=== PATIENT | female | born 1990 | race Caucasian/White ===

== ENCOUNTER 2018-10-24 01:29 | Inpatient (IN) ==
[2018-10-24] MEDS ORDERED: Morphine Inj 4 MG/ML Vial ONE (01:38)
[2018-10-24] MEDS ORDERED: ceFAZolin 2 GM Premix Inj 2 GM/50 ML PIGGYBACK IV.SIG ONE (01:38)
[2018-10-24] MEDS ORDERED: Gentamicin/NS 80 mg Premix 100 ML IV.SIG ONE (01:39)
[2018-10-24] MEDS ORDERED: Diphtheria/Tetanus/Pertussis Vaccine Inj 0.5 ML Syringe IM ONE (01:39)
[2018-10-24 01:58] LABS: Baso # (Auto) 0.1 th/mm3 (0.0-0.2); Baso % (Auto) 0.4 % (0.0-2.0); Eos # (Auto) 0.3 th/mm3 (0.0-0.4); Eos % (Auto) 1.6 % (0.0-4.0); Hematocrit 42.9 % (35.0-46.0); Hemoglobin 14.9 gm/dL (11.6-15.3); Lymph # (Auto) 4.5 th/mm3 (1.0-4.8); Lymph % (Auto) 26.7 % (9.0-44.0); Mean Corpuscular HGB Conc 34.8 % (32.0-36.0); Mean Corpuscular Hemoglobin 31.1 pg (27.0-34.0); Mean Corpuscular Volume 89.3 fL (80.0-100.0); Mean Platelet Volume 8.4 fL (7.0-11.0); Mono # (Auto) 0.7 th/mm3 (0.0-0.9); Mono % (Auto) 4.2 % (0.0-8.0); Neut # (Auto) 11.3 th/mm3 (1.8-7.7); Neut % (Auto) 67.1 % (16.0-70.0); Platelet Count 312 th/mm3 (150-450); Red Blood Count 4.81 mil/mm3 (4.00-5.30); White Blood Count 16.8 th/mm3 (4.0-11.0)
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
[2018-10-24 02:07] LABS: Activated Partial Thrombo Time 25.7 sec (23.4-31.7); Prothrombin Time 10.3 sec (9.8-11.6)
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
[2018-10-24] MEDS ORDERED: HYDROmorphone PF Inj 1 MG/ML Ampul IV.PUSH PRN ×2 (03:36→05:38)
[2018-10-24] MEDS ORDERED: Sod Chloride 0.9% Inj 1,000 ML IV.CONT SCH (03:45)
[2018-10-24] MEDS ORDERED: Pantoprazole Inj 40 MG Vial IV.PUSH SCH (04:00)
[2018-10-24] MEDS ORDERED: Chlorhexidine Gluconate 2% 1 Pack (2 Cloths) TOPICAL PRN (04:00)
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
[2018-10-24] MEDS: Multivitamin Inj 10 ML, Thiamine Inj 100 MG, Folic Acid Inj 1 MG in Sodium Chlor 0.9% I... IV.SIG SCH (07:42)
[2018-10-24] MEDS: Chlorhexidine Gluconate 2% 1 Pack (2 Cloths) TOPICAL SCH (07:49)
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
[2018-10-24] MEDS: Methocarbamol 500 MG Tablet PO SCH ×3 (08:16→21:47)
[2018-10-24] MEDS: Lidocaine 5% Patch T-DERMAL SCH (08:16)
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
[2018-10-24] MEDS ORDERED: Docusate Sodium Liq 100 MG/10 ML UDC PO SCH (09:00)
[2018-10-24] MEDS ORDERED: Docusate Sodium 100 MG Capsule PO SCH (09:00)
[2018-10-24] MEDS ORDERED: Senna/Docusate Sodium 8.6/50 MG Tablet PO SCH (09:00)
[2018-10-24] MEDS ORDERED: Bupivacaine PF 0.25% Inj 30 ML Vial ONE (09:37)
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
[2018-10-24] MEDS ORDERED: Sodium Chlor 0.9% Inj 250 ML IV.CONT ONE (12:11)
[2018-10-24] MEDS ORDERED: Lidocaine PF 1% Inj 5 ML Syringe INFILTRATN ONE (12:11)
[2018-10-24] MEDS ORDERED: Neostigmine Inj 5 MG/5 ML Syringe IV.PUSH ONE (12:11)
[2018-10-24] MEDS ORDERED: Glycopyrrolate Inj 1 MG/5 ML Syringe IV.PUSH ONE (12:11)
[2018-10-24] MEDS ORDERED: Bupivacaine 0.5% Inj 50 ML MDV Vial ONE (13:21)
[2018-10-24] MEDS ORDERED: Naloxone Inj 0.4 MG/ML Vial IV.PUSH PRN (13:35)
[2018-10-24] MEDS ORDERED: Bisacodyl 10 MG Supp RECTAL PRN (13:35)
[2018-10-24] MEDS ORDERED: Misc Info for Pharmacy OTHER STA (13:35)
[2018-10-24] MEDS ORDERED: Promethazine 25 MG Supp RECTAL PRN (13:35)
--- NOTE | 2018-10-24 13:42 | P.BOP ---
- Preoperative Diagnosis (1) Lisfranc fracture (2) Lisfranc dislocation (3) Open fracture of left foot - Postoperative Diagnosis (1) Lisfranc fracture (2) Lisfranc dislocation (3) Open fracture of left foot Date of procedure: 10/24/18 Procedure: 1) Left foot irrigation and drainage. 2) Left foot application of percutaneous k wire 3) Left foot application on mini external fixation. Anesthesia: GETA Surgeon: Yasmine Jenkins DPM Track Supervisor: Jennifer David Estimated blood loss (mL): 20 Tourniquet time (min): 0 ( none) Pathology: none sent Condition: stable Disposition: PACU
[2018-10-24] MEDS ORDERED: fentaNYL Citrate Inj 100 MCG/2 ML Ampul ONE (13:46)
--- NOTE | 2018-10-24 13:50 | XR ---
EXAM DATE: 10/24/2018 1:33 PM EST AGE/SEX: 28 years / Female INDICATIONS: External fixation left foot. CLINICAL DATA: This is the patient's subsequent encounter. Patient reports that signs and symptoms h ave been present for 1 day and indicates a pain score of Nonresponsive. MEDICAL/SURGICAL HISTORY: None. None. COMPARISON: No prior exams available for comparison. FINDINGS: 2 magnified C-arm spot views are centered over the midfoot and labeled left. Anchoring screws for ext ernal fixator are seen involving the distal diaphysis of the first metatarsal as well as the first cu neiform. K style wires traverse the first cuneiform as well as the base of the second metatarsal, sec ond cuneiform, and navicular bone. A third case style wires traverse is the base of the second metata rsal and enters the cuboid. CONCLUSION: Limited images as detailed above. Electronically signed by: Shilo Pimentel MD Board Certified Radiologist 10/24/2018 1:48 PM EST
--- NOTE | 2018-10-24 14:27 | XR ---
EXAM DATE: 10/24/2018 2:17 PM EST AGE/SEX: 28 years / Female INDICATIONS: External fixation left foot. CLINICAL DATA: This is the patient's subsequent encounter. Patient reports that signs and symptoms h ave been present for 1 day and indicates a pain score of Nonresponsive. MEDICAL/SURGICAL HISTORY: None. None. COMPARISON: [facility] [place] 2V, 10/24/2018. [facility] [place] LEFT 2V, 10/24/2018. . FINDINGS: 2 views of the foot demonstrates external fixation screws in the first digit and 3 pins traversing th e first and second digits. The first and second metatarsus are in normal alignment with the cuneiform s. No significant angulation or displacement. Plantar fiberglass splint. CONCLUSION: External fixation hardware with scientology of alignment of the midfoot. Electronically signed by: Shilo Reid MD Board Certified Radiologist 10/24/2018 2:25 PM EST
[2018-10-24 16:03] LABS: Baso % (Auto) 0.2 % (0.0-2.0); Hematocrit 37.9 % (35.0-46.0); Hemoglobin 13.2 gm/dL (11.6-15.3); Lymph # (Auto) 0.9 th/mm3 (1.0-4.8); Lymph % (Auto) 10.6 % (9.0-44.0); Mean Corpuscular HGB Conc 34.7 % (32.0-36.0); Mean Corpuscular Hemoglobin 31.3 pg (27.0-34.0); Mean Platelet Volume 8.6 fL (7.0-11.0); Mono # (Auto) 0.3 th/mm3 (0.0-0.9); Mono % (Auto) 3.5 % (0.0-8.0); Neut # (Auto) 7.5 th/mm3 (1.8-7.7); Neut % (Auto) 85.7 % (16.0-70.0); Platelet Count 235 th/mm3 (150-450); Red Blood Count 4.21 mil/mm3 (4.00-5.30); Red Cell Distribution Width 14.4 % (11.6-17.2); White Blood Count 8.8 th/mm3 (4.0-11.0)
[2018-10-24 16:25] LABS: Calcium 7.7 mg/dL (8.5-10.1); Carbon Dioxide 24.4 meq/L (21.0-32.0); Potassium 4.4 meq/L (3.5-5.1)
[2018-10-24 16:34] LABS: Thyroid Stimulating Hormone 4.55 uIU/mL (0.358-3.740)
[2018-10-24] MEDS: Senna/Docusate Sodium 8.6/50 MG Tablet PO SCH (20:08)
[2018-10-24 20:43] LABS: Baso % (Auto) 0.1 % (0.0-2.0); Hematocrit 37.6 % (35.0-46.0); Hemoglobin 13.1 gm/dL (11.6-15.3); Lymph # (Auto) 1.5 th/mm3 (1.0-4.8); Lymph % (Auto) 13.8 % (9.0-44.0); Mean Corpuscular HGB Conc 34.8 % (32.0-36.0); Mean Corpuscular Volume 89.3 fL (80.0-100.0); Mean Platelet Volume 8.6 fL (7.0-11.0); Mono # (Auto) 0.5 th/mm3 (0.0-0.9); Mono % (Auto) 4.6 % (0.0-8.0); Neut # (Auto) 8.8 th/mm3 (1.8-7.7); Neut % (Auto) 81.5 % (16.0-70.0); Platelet Count 278 th/mm3 (150-450); Red Blood Count 4.22 mil/mm3 (4.00-5.30); Red Cell Distribution Width 14.3 % (11.6-17.2); White Blood Count 10.8 th/mm3 (4.0-11.0)
[2018-10-24 21:04] LABS: Calcium 8.3 mg/dL (8.5-10.1); Carbon Dioxide 21.5 meq/L (21.0-32.0)
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
[2018-10-25] MEDS: Chlorhexidine Gluconate 2% 1 Pack (2 Cloths) TOPICAL SCH (03:55)
[2018-10-25] MEDS: Methocarbamol 500 MG Tablet PO SCH ×3 (05:10→21:34)
[2018-10-25] MEDS: Multivitamin Inj 10 ML, Thiamine Inj 100 MG, Folic Acid Inj 1 MG in Sodium Chlor 0.9% I... IV.SIG SCH (05:10)
[2018-10-25 05:54] LABS: Baso % (Auto) 0.2 % (0.0-2.0); Eos % (Auto) 0.1 % (0.0-4.0); Hematocrit 35.8 % (35.0-46.0); Hemoglobin 12.3 gm/dL (11.6-15.3); Lymph # (Auto) 2.2 th/mm3 (1.0-4.8); Lymph % (Auto) 17.2 % (9.0-44.0); Mean Corpuscular HGB Conc 34.4 % (32.0-36.0); Mean Corpuscular Hemoglobin 31.1 pg (27.0-34.0); Mean Corpuscular Volume 90.2 fL (80.0-100.0); Mono # (Auto) 1.1 th/mm3 (0.0-0.9); Mono % (Auto) 8.8 % (0.0-8.0); Neut # (Auto) 9.2 th/mm3 (1.8-7.7); Neut % (Auto) 73.7 % (16.0-70.0); Platelet Count 239 th/mm3 (150-450); Red Blood Count 3.96 mil/mm3 (4.00-5.30); Red Cell Distribution Width 14.2 % (11.6-17.2); White Blood Count 12.5 th/mm3 (4.0-11.0)
--- NOTE | 2018-10-25 06:14 | XR ---
EXAM DATE: 10/25/2018 3:46 AM EST AGE/SEX: 28 years / Female INDICATIONS: Follow up trauma, rib fractures. CLINICAL DATA: This is the patient's subsequent encounter. Patient reports that signs and symptoms h ave been present for 2 days and indicates a pain score of Nonresponsive. MEDICAL/SURGICAL HISTORY: . Right clavicle fracture. . External fixation left foot COMPARISON: [facility], CHEST 1V SINGLE AP, 10/24/2018. . FINDINGS: Lungs are focally clear. No significant effusion present. Accounting for rotation, cardiac contours a ppear stable and satisfactory. CONCLUSION: No significant change Electronically signed by: Noble Pearce MD Board Certified Radiologist 10/25/2018 6:12 AM EST
[2018-10-25 06:22] LABS: Anion Gap 9 meq/L (5-15); Blood Urea Nitrogen 7 mg/dL (7-18); Calcium 8.7 mg/dL (8.5-10.1); Carbon Dioxide 24.4 meq/L (21.0-32.0); Chloride 104 meq/L (98-107); Glomerular Filtration Rate Greater Than 89 mL/min (>89); Glucose,Random 107 mg/dL (74-106); Potassium 3.7 meq/L (3.5-5.1); Sodium 137 meq/L (136-145)
[2018-10-25] MEDS: Senna/Docusate Sodium 8.6/50 MG Tablet PO SCH ×2 (09:38→21:34)
[2018-10-25] MEDS: Lidocaine 5% Patch T-DERMAL SCH (09:42)
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
[2018-10-25] MEDS: Enoxaparin Inj 30 MG/0.3 ML Syringe SQ SCH ×2 (14:19→21:33)
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
--- NOTE | 2018-10-25 17:08 | ECHRPT ---
Indication: CHEST PAIN CONCLUSIONS Normal left ventricular size. The left ventricular systolic function is normal with an estimated ejection fraction in the range of 55-60%. Wall thickness is normal. [id number] mitral valve regurgitation. There is trace tricuspid valve regurgitation. The estimated pulmonary arterial pressure is 30.6 mmHg. BP: / HR: Rhythm: Sinus MEASUREMENTS (Male / Female) Normal Values Technical Quality:Fair 2D ECHO LV Diastolic Diameter PLAX 5.5 cm 4.2 - 5.9 / 3.9 - 5.3 cm LV Systolic Diameter PLAX 4.2 cm IVS Diastolic Thickness 0.9 cm 0.6 - 1.0 / 0.6 - 0.9 cm LVPW Diastolic Thickness 0.9 cm 0.6 - 1.0 / 0.6 - 0.9 cm LV Relative Wall Thickness 0.3 RV Internal Dim ED PLAX 3.3 cm LVOT Diameter 2.0 cm Aortic Root Diameter 2.7 cm LA Systolic Diameter LX 3.3 cm 3.0 - 4.0 / 2.7 - 3.8 cm M-MODE AV Cusp Separation MM 1.9 cm DOPPLER AV Peak Velocity 149.0 cm/s AV Peak Gradient 8.9 mmHg AV Mean Gradient 5.0 mmHg AV Velocity Time Integral 25.7 cm LVOT Peak Velocity 88.3 cm/s LVOT Peak Gradient 3.1 mmHg LVOT Velocity Time Integral 16.1 cm AV Area Cont Eq vti 2.0 cm AV Area Cont Eq pk 1.9 cm Mitral E Point Velocity 94.8 cm/s Mitral A Point Velocity 87.9 cm/s Mitral E to A Ratio 1.1 LV E' Lateral Velocity 14.4 cm/s Mitral E to LV E' Lateral Ratio 6.6 LV E' Septal Velocity 11.4 cm/s Mitral E to LV E' Septal Ratio 8.3 TR Peak Velocity 227.0 cm/s TR Peak Gradient 20.6 mmHg Right Atrial Pressure 10.0 mmHg Pulmonary Artery Systolic Pressu 30.6 mmHg Right Ventricular Systolic Press 30.6 mmHg PV Peak Velocity 89.5 cm/s PV Peak Gradient 3.2 mmHg FINDINGS LEFT VENTRICLE Normal left ventricular size. The left ventricular systolic function is normal with an estimated ejection fraction in the range of 55-60%. Wall thickness is normal. RIGHT VENTRICLE Normal right ventricular size and systolic function. LEFT ATRIUM The left atrial size is normal. RIGHT ATRIUM The right atrial size is normal. ATRIAL SEPTUM No atrial level shunt is demonstrated by color flow Doppler interrogation. AORTA The aortic root and proximal ascending aorta are normal in size on limited imaging. MITRAL VALVE [id number] mitral valve regurgitation. AORTIC VALVE Trileaflet aortic valve. No aortic valve stenosis or regurgitation. TRICUSPID VALVE There is trace tricuspid valve regurgitation. The estimated pulmonary arterial pressure is 30.6 mmHg. PULMONARY VALVE No pulmonary valve regurgitation or stenosis. VESSELS The inferior vena cava is normal in size. PERICARDIUM No pericardial effusion. Robert Portillo MD, FACC, FSCAI (Electronically Signed) Final Date:25 October 2018 17:07
--- NOTE | 2018-10-26 04:53 | XR ---
EXAM DATE: 10/26/2018 4:22 AM EST AGE/SEX: 28 years / Female INDICATIONS: Shortness of breath. CLINICAL DATA: This is the patient's subsequent encounter. Patient reports that signs and symptoms h ave been present for 2 days and indicates a pain score of 0/10. MEDICAL/SURGICAL HISTORY: Hypothyroidism. Right clavicle fracture. None. COMPARISON: [facility] [place], CHEST 1V SINGLE AP, 10/25/2018. . FINDINGS: A single AP view of the chest demonstrates the lungs to be symmetrically aerated without evidence of mass, infiltrate or effusion. The cardiomediastinal contours are unremarkable. Osseous structures a re intact. CONCLUSION: No acute disease Electronically signed by: Noble Pearce MD Board Certified Radiologist 10/26/2018 4:52 AM EST
[2018-10-26] MEDS: Methocarbamol 500 MG Tablet PO SCH ×3 (05:00→22:26)
[2018-10-26] MEDS: Multivitamin Inj 10 ML, Thiamine Inj 100 MG, Folic Acid Inj 1 MG in Sodium Chlor 0.9% I... IV.SIG SCH (05:00)
[2018-10-26] MEDS: Lidocaine 5% Patch T-DERMAL SCH (10:10)
[2018-10-26] MEDS: Enoxaparin Inj 30 MG/0.3 ML Syringe SQ SCH ×2 (10:12→20:39)
[2018-10-26] MEDS: Senna/Docusate Sodium 8.6/50 MG Tablet PO SCH ×2 (10:13→20:40)
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
--- NOTE | 2018-10-26 22:50 | P.PNPOD ---
Subjective Interval history: POD # 2 Left foot ORIF and ex fix application pain is better controlled. Physical Exam Vital signs: Vital Signs 10/25/18 23:00 10/25/18 23:10 10/26/18 00:00 Temperature 98.2 F Pulse Rate 80 80 80 Respiratory Rate 18 18 18 Blood Pressure 123/73 124/69 Pulse Oximetry 98 97 97 10/26/18 00:10 10/26/18 01:00 10/26/18 01:10 Temperature Pulse Rate 82 87 81 Respiratory Rate 18 18 18 Blood Pressure 124/69 124/80 Pulse Oximetry 97 97 97 10/26/18 02:00 10/26/18 02:10 10/26/18 03:00 Temperature Pulse Rate 79 80 77 Respiratory Rate 18 18 18 Blood Pressure 129/78 Pulse Oximetry 97 97 96 10/26/18 03:10 10/26/18 04:00 10/26/18 04:10 Temperature 98.2 F Pulse Rate 78 78 79 Respiratory Rate 18 18 18 Blood Pressure 136/83 134/90 134/90 Pulse Oximetry 97 96 97 10/26/18 05:00 10/26/18 05:10 10/26/18 05:29 Temperature Pulse Rate 85 81 Respiratory Rate 18 18 16 Blood Pressure 140/84 Pulse Oximetry 96 96 10/26/18 06:00 10/26/18 06:10 10/26/18 07:00 Temperature Pulse Rate 86 86 77 Respiratory Rate 16 16 18 Blood Pressure 139/72 Pulse Oximetry 96 97 96 10/26/18 07:10 10/26/18 08:00 10/26/18 08:10 Temperature 98.6 F Pulse Rate 76 83 Respiratory Rate 20 20 Blood Pressure 126/67 123/73 Pulse Oximetry 96 99 10/26/18 09:00 10/26/18 09:10 10/26/18 10:00 Temperature Pulse Rate 101 H 80 Respiratory Rate 22 20 Blood Pressure 122/78 Pulse Oximetry 98 92 L 10/26/18 10:10 10/26/18 11:00 10/26/18 11:10 Temperature Pulse Rate 82 83 Respiratory Rate 16 26 H Blood Pressure 127/79 124/74 Pulse Oximetry 92 L 92 L 10/26/18 12:00 10/26/18 12:10 10/26/18 13:00 Temperature 98.7 F Pulse Rate 81 88 86 Respiratory Rate 28 H 24 20 Blood Pressure 134/71 Pulse Oximetry 93 L 93 L 93 L 10/26/18 13:10 10/26/18 16:00 Temperature 98.1 F Pulse Rate 86 86 Respiratory Rate 18 16 Blood Pressure 118/67 158/70 H Pulse Oximetry 93 L 95 Intake & Output 10/26/18 10/26/18 10/27/18 06:59 18:59 06:59 Intake Total 651.2 / 651.2 511.2 / 511.2 Output Total 200 / 200 Balance 451.2 / 451.2 511.2 / 511.2 Weight 105.3 kg Intake: IV 511.2 / 511.2 511.2 / 511.2 MVI-12 Inj 10 ML Thiamine Inj 511.2 / 511.2 511.2 / 511.2 100 MG Folvite Inj 1 MG In NS Inj 500 ML @ 125 mls/hr IV.SIG Q24H [facility] Rx#:[id number] Oral 140 / 140 Output: Urine 200 / 200 Other: # Voids 2 Date of Last Bowel Movement 10/26/18 10/26/18 # Bowel Movements 1 Narrative: LLE intact sensation at the digits 1-5 and active ROM available. NVS intact No strikethrough to outer dressing. Medications and Allergies Active Medications: Active Medications Al Hydroxide/Mg Hydroxide (Milk Of Magnjulissa Liq) 30 ml PO Q12H [facility] Last Admin: 10/26/18 20:39 Dose: Not Given Albuterol (Duoneb Neb (Prn)) 1 ampul NEB Q2HR NEB PRN PRN Reason: WHEEZING Bacitracin (Baciguent Oint) 1 applicatio TOPICAL BID [facility] Last Admin: 10/26/18 20:46 Dose: 1 applicatio Bisacodyl (Dulcolax Supp) 10 mg RECTAL DAILY PRN PRN Reason: SEVERE CONSITIPATION Calcium Carbonate (Tums Chew) 500 mg CHEW Q2H PRN PRN Reason: DYSPEPSIA Enalaprilat (Vasotec Inj) 1.25 mg IV.PUSH Q8H PRN PRN Reason: SBP>180, DBP>95 Enoxaparin Sodium (Lovenox Inj) 30 mg SQ Q12HR [facility] Last Admin: 10/26/18 20:39 Dose: Not Given Hydromorphone HCl (Dilaudid Pf Inj) 1 mg IV.PUSH Q4H PRN PRN Reason: Break through pain Last Admin: 10/25/18 14:18 Dose: 1 mg Lactulose (Lactulose Liq) 30 ml PO DAILY PRN PRN Reason: SEVERE CONSITIPATION Levothyroxine Sodium (Synthroid) 25 mcg PO DAILY@0600 [facility] Last Admin: 10/26/18 05:00 Dose: 25 mcg Lidocaine HCl (Lidoderm 5% Patch.12 Hr) 1 patch T-DERMAL DAILY [facility] Last Admin: 10/26/18 10:10 Dose: 1 patch Methocarbamol (Robaxin) 500 mg PO Q8HR [facility] Last Admin: 10/26/18 22:26 Dose: 500 mg Naloxone HCl (Narcan Inj) 0.4 mg IV.PUSH UNSCH PRN PRN Reason: SEE LABEL COMMENTS Ondansetron HCl (Zofran Inj) 4 mg IV.PUSH Q6H PRN PRN Reason: NAUSEA OR VOMITING Ondansetron HCl (Zofran Odt) 4 mg PO Q6H PRN PRN Reason: NAUSEA OR VOMITING Oxycodone HCl (Roxicodone) 10 mg PO Q4H PRN PRN Reason: Pain 6-10 Last Admin: 10/26/18 20:40 Dose: 10 mg Oxycodone HCl (Roxicodone) 5 mg PO Q4H PRN PRN Reason: PAIN SCALE 3 TO 5 Last Admin: 10/26/18 14:07 Dose: 5 mg Promethazine HCl (Phenergan) 25 mg PO Q6H PRN PRN Reason: NAUSEA OR VOMITING Promethazine HCl (Phenergan Supp) 25 mg RECTAL Q6H PRN PRN Reason: NAUSEA OR VOMITING Senna/Docusate Sodium (Jaqueline-Colace) 1 tab PO BID [facility] Last Admin: 10/26/18 20:40 Dose: 1 tab Sennosides (Senokot) 17.2 mg PO Q12H PRN PRN Reason: Moderate Constipation Sodium Chloride (Ns Flush) 2 ml IV.FLUSH BID [facility] Last Admin: 10/26/18 20:39 Dose: 2 ml Sodium Chloride (Ns Flush) 2 ml IV.FLUSH PRN PRN PRN Reason: FLUSH AFTER USING IV ACCESS Allergies Allergy/AdvReac Type Severity Reaction Status Date / Time No Known Drug Allergies Allergy none Verified 10/24/18 06:57 Home Medications Medication Instructions Recorded Confirmed Type No Known Home Medications 10/24/18 10/24/18 History Results - Labs CBC & Chem 7: 10/25/18 05:12 10/25/18 05:12 - Imaging Impressions Chest X-Ray 10/26/18 06:00 CONCLUSION: No acute disease Assessment and Plan - Assessment (1) Lisfranc dislocation Code(s): S93.326A - Dislocation of tarsometatarsal joint of unspecified foot, initial encounter Status: Acute (2) Open fracture of left foot Code(s): S92.902B - Unspecified fracture of left foot, initial encounter for open fracture Status: Acute - Plan Plan for OR on 10/27/18 at 0800 Consent for left foot irrigation and debridement Then plan for primary fusion with Dr Rodriguez in 3-5 days. Patient will be d/c to Rehab at [facility] 6 weeks minimum. (1) Lisfranc dislocation Qualifiers: Encounter type: initial encounter Laterality: left Qualified Code(s): S93.325A - Dislocation of tarsometatarsal joint of left foot, initial encounter (2) Open fracture of left foot Qualifiers: Encounter type: initial encounter Qualified Code(s): S92.902B - Unspecified fracture of left foot, initial encounter for open fracture
[2018-10-27] MEDS ORDERED: Sodium Chlor 0.9% Inj 500 ML IV.CONT ONE (05:45)
[2018-10-27] MEDS ORDERED: Chlorhexidine Gluconate 2% 1 Pack (2 Cloths) TOPICAL ONE (05:45)
[2018-10-27] MEDS: Methocarbamol 500 MG Tablet PO SCH ×3 (06:21→21:30)
--- NOTE | 2018-10-27 06:44 | P.PNOP ---
Subjective Interval history: States the pain is improved to her left upper extremity. Still continues to have pain in the right upper extremity. She is n.p.o. and surgery is planned today for irrigation debridement of her foot. Physical Exam Vital signs: Vital Signs 10/26/18 07:00 10/26/18 07:10 10/26/18 08:00 Temperature 98.6 F Pulse Rate 77 76 83 Respiratory Rate 18 20 20 Blood Pressure 126/67 Pulse Oximetry 96 96 99 10/26/18 08:10 10/26/18 09:00 10/26/18 09:10 Temperature Pulse Rate 101 H Respiratory Rate 22 Blood Pressure 123/73 122/78 Pulse Oximetry 98 10/26/18 10:00 10/26/18 10:10 10/26/18 11:00 Temperature Pulse Rate 80 82 Respiratory Rate 20 16 Blood Pressure 127/79 Pulse Oximetry 92 L 92 L 10/26/18 11:10 10/26/18 12:00 10/26/18 12:10 Temperature 98.7 F Pulse Rate 83 81 88 Respiratory Rate 26 H 28 H 24 Blood Pressure 124/74 134/71 Pulse Oximetry 92 L 93 L 93 L 10/26/18 13:00 10/26/18 13:10 10/26/18 16:00 Temperature 98.1 F Pulse Rate 86 86 86 Respiratory Rate 20 18 16 Blood Pressure 118/67 158/70 H Pulse Oximetry 93 L 93 L 95 10/26/18 20:00 10/27/18 00:00 10/27/18 04:00 Temperature 98.3 F 98.2 F 97.8 F Pulse Rate 90 92 H 74 Respiratory Rate 18 18 18 Blood Pressure 129/70 128/69 130/74 Pulse Oximetry 93 L 93 L 96 Intake & Output 10/26/18 10/26/18 10/27/18 06:59 18:59 06:59 Intake Total 651.2 / 651.2 511.2 / 511.2 200 / 200 Output Total 200 / 200 Balance 451.2 / 451.2 511.2 / 511.2 200 / 200 Weight 105.3 kg 93.7 kg Intake: IV 511.2 / 511.2 511.2 / 511.2 MVI-12 Inj 10 ML Thiamine Inj 511.2 / 511.2 511.2 / 511.2 100 MG Folvite Inj 1 MG In NS Inj 500 ML @ 125 mls/hr IV.SIG Q24H [facility] Rx#:[id number] Oral 140 / 140 200 / 200 Output: Urine 200 / 200 Other: # Voids 2 0 Date of Last Bowel Movement 10/26/18 10/26/18 10/26/18 # Bowel Movements 1 0 Narrative: Right upper extremity: Pain to palpation of her clavicle and sternoclavicular joint. No pain to palpation of elbow wrist or fingers. She has intact sensation and full extension and flexion of all fingers. Good capillary refills and distal pulses Left upper extremity: Minimal pain to palpation over the sternoclavicular joint. She has active motion of the shoulder with minimal pain. Full range of motion of elbow wrist and fingers. Distally intact sensation with good capillary refill Results - Labs CBC & Chem 7: 10/25/18 05:12 10/25/18 05:12 Assessment and Plan - Assessment and Plan Right clavicle fracture and bilateral sternoclavicular joint separations. Nonoperative treatment for bilateral shoulders. She will be nonweightbearing of the right upper extremity and continue to remain in sling and swath. She may be weightbearing as tolerated on the left upper extremity. Continue podiatry care
[2018-10-27] MEDS ORDERED: Lidocaine 2% Inj 50 ML Vial ONE (07:21)
[2018-10-27] MEDS ORDERED: Neomycin/Polymyxin G.U. Irrigant 1 ML Ampul ONE (07:35)
[2018-10-27] MEDS ORDERED: Lidocaine PF 1% Inj 5 ML Syringe INFILTRATN ONE (07:59)
[2018-10-27] MEDS: [UNRECOGNIZED DRUG - OTHER] IRRIGATION SCH ×4 (08:32→09:49)
[2018-10-27] MEDS: NEOMYCIN IRRIGATION SCH ×4 (08:32→09:49)
[2018-10-27] MEDS: SOD CHLORIDE 0.9% IRRIGATION SCH ×4 (08:32→09:49)
[2018-10-27] MEDS: Bupivacaine 0.5% Inj 50 ML MDV Vial ONE ×2 (08:34→08:45)
[2018-10-27] MEDS ORDERED: fentaNYL Citrate Inj 100 MCG/2 ML Ampul ONE (09:10)
[2018-10-27] MEDS ORDERED: Bisacodyl 10 MG Supp RECTAL PRN (09:11)
[2018-10-27] MEDS ORDERED: Naloxone Inj 0.4 MG/ML Vial IV.PUSH PRN (09:11)
[2018-10-27] MEDS ORDERED: Promethazine 25 MG Supp RECTAL PRN (09:11)
[2018-10-27] MEDS ORDERED: Misc Info for Pharmacy OTHER STA (09:11)
--- NOTE | 2018-10-27 09:18 | P.BOP ---
- Preoperative Diagnosis (1) Lisfranc dislocation (2) Open fracture of left foot - Postoperative Diagnosis (1) Lisfranc dislocation (2) Open fracture of left foot Date of procedure: 10/27/18 Procedure: 1) left foot irrigation and debridement. Anesthesia: GETA Surgeon: Yasmine Jenkins DPM Estimated blood loss (mL): 3 Tourniquet time (min): 0 (Left tourniquent ankle never inflated.) Pathology: none sent (Culture left dorsal midfoot) Condition: stable Disposition: PACU
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
[2018-10-27] MEDS: Senna/Docusate Sodium 8.6/50 MG Tablet PO SCH ×2 (09:48→20:26)
[2018-10-27] MEDS: Enoxaparin Inj 30 MG/0.3 ML Syringe SQ SCH ×2 (09:48→20:29)
[2018-10-27] MEDS: Lidocaine 5% Patch T-DERMAL SCH (12:32)
[2018-10-27] MEDS ORDERED: Senna/Docusate Sodium 8.6/50 MG Tablet PO SCH (21:00)
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
[2018-10-28 05:18] LABS: Baso % (Auto) 0.5 % (0.0-2.0); Eos # (Auto) 0.2 th/mm3 (0.0-0.4); Eos % (Auto) 2.6 % (0.0-4.0); Hematocrit 34.1 % (35.0-46.0); Hemoglobin 11.6 gm/dL (11.6-15.3); Lymph # (Auto) 3.2 th/mm3 (1.0-4.8); Lymph % (Auto) 42.2 % (9.0-44.0); Mean Corpuscular HGB Conc 33.9 % (32.0-36.0); Mean Corpuscular Hemoglobin 30.3 pg (27.0-34.0); Mean Corpuscular Volume 89.2 fL (80.0-100.0); Mean Platelet Volume 8.5 fL (7.0-11.0); Mono # (Auto) 0.6 th/mm3 (0.0-0.9); Mono % (Auto) 8.2 % (0.0-8.0); Neut # (Auto) 3.6 th/mm3 (1.8-7.7); Neut % (Auto) 46.5 % (16.0-70.0); Platelet Count 237 th/mm3 (150-450); Red Blood Count 3.83 mil/mm3 (4.00-5.30); Red Cell Distribution Width 14.1 % (11.6-17.2); White Blood Count 7.6 th/mm3 (4.0-11.0)
[2018-10-28] MEDS: Methocarbamol 500 MG Tablet PO SCH ×3 (05:20→21:16)
[2018-10-28 05:43] LABS: Anion Gap 7 meq/L (5-15); Blood Urea Nitrogen 8 mg/dL (7-18); Calcium 8.4 mg/dL (8.5-10.1); Carbon Dioxide 28.3 meq/L (21.0-32.0); Chloride 105 meq/L (98-107); Glomerular Filtration Rate Greater Than 89 mL/min (>89); Glucose,Random 86 mg/dL (74-106); Potassium 3.7 meq/L (3.5-5.1); Sodium 140 meq/L (136-145)
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
[2018-10-28] MEDS: Senna/Docusate Sodium 8.6/50 MG Tablet PO SCH ×2 (09:15→21:16)
[2018-10-28] MEDS: Lidocaine 5% Patch T-DERMAL SCH (09:15)
[2018-10-28] MEDS: Enoxaparin Inj 30 MG/0.3 ML Syringe SQ SCH ×2 (09:16→21:16)
[2018-10-28] MEDS: NEOMYCIN IRRIGATION SCH ×2 (09:21)
[2018-10-28] MEDS: SOD CHLORIDE 0.9% IRRIGATION SCH ×2 (09:21)
[2018-10-28] MEDS: [UNRECOGNIZED DRUG - OTHER] IRRIGATION SCH ×2 (09:21)
--- NOTE | 2018-10-28 23:34 | P.PNPOD ---
Subjective Interval history: Patient seen bedside. Pain well controlled to right LE. Physical Exam Vital signs: Vital Signs 10/27/18 23:35 10/28/18 04:25 10/28/18 08:00 Temperature 97.9 F 97.8 F 97.9 F Pulse Rate 79 83 83 Respiratory Rate 17 17 20 Blood Pressure 110/61 118/59 L 115/67 Pulse Oximetry 94 L 95 94 L 10/28/18 12:00 10/28/18 16:00 10/28/18 21:00 Temperature 97.7 F 97.8 F 97.9 F Pulse Rate 81 82 76 Respiratory Rate 20 20 18 Blood Pressure 124/66 115/73 124/69 Pulse Oximetry 94 L 98 94 L 10/28/18 21:15 Temperature Pulse Rate Respiratory Rate 18 Blood Pressure Pulse Oximetry Intake & Output 10/28/18 10/28/18 10/29/18 06:59 18:59 06:59 Intake Total 480 / 480 Balance 480 / 480 Weight 93.7 kg Intake: Oral 480 / 480 Other: # Voids 1 4 Date of Last Bowel Movement 10/26/18 # Bowel Movements 0 Narrative: Dressing intact to left LE. COMPUTER SYSTEM[employer]UDIT[employer] Under 3 secs to digits x5 left LE. Active/ Passive DF/PF digits x5. Medications and Allergies Active Medications: Active Medications Al Hydroxide/Mg Hydroxide (Milk Of Katey Flannery) 30 ml PO Q12H [facility] Last Admin: 10/28/18 21:16 Dose: 30 ml Albuterol (Duoneb Neb (Prn)) 1 ampul NEB Q2HR NEB PRN PRN Reason: WHEEZING Bacitracin (Baciguent Oint) 1 applicatio TOPICAL BID [facility] Last Admin: 10/28/18 09:21 Dose: Not Given Bisacodyl (Dulcolax Supp) 10 mg RECTAL DAILY PRN PRN Reason: SEVERE CONSITIPATION Calcium Carbonate (Tums Chew) 500 mg CHEW Q2H PRN PRN Reason: DYSPEPSIA Sodium Chloride 3,000 ml/ (Neomycin/Polymyxin 2 ml) 0 ml IRRIGATION DAILY [facility] Last Admin: 10/28/18 09:21 Dose: Not Given Enalaprilat (Vasotec Inj) 1.25 mg IV.PUSH Q8H PRN PRN Reason: SBP>180, DBP>95 Enoxaparin Sodium (Lovenox Inj) 30 mg SQ Q12HR [facility] Last Admin: 10/28/18 21:16 Dose: 30 mg Hydromorphone HCl (Dilaudid Pf Inj) 0.5 mg IV.PUSH Q4H PRN PRN Reason: Break through pain Lactulose (Lactulose Liq) 30 ml PO DAILY [facility] Last Admin: 10/28/18 09:17 Dose: Not Given Levothyroxine Sodium (Synthroid) 25 mcg PO DAILY@0600 [facility] Last Admin: 10/28/18 05:20 Dose: 25 mcg Lidocaine HCl (Lidoderm 5% Patch.12 Hr) 1 patch T-DERMAL DAILY [facility] Last Admin: 10/28/18 09:15 Dose: 1 patch Methocarbamol (Robaxin) 500 mg PO Q8HR [facility] Last Admin: 10/28/18 21:16 Dose: 500 mg Naloxone HCl (Narcan Inj) 0.4 mg IV.PUSH UNSCH PRN PRN Reason: SEE LABEL COMMENTS Ondansetron HCl (Zofran Inj) 4 mg IV.PUSH Q6H PRN PRN Reason: NAUSEA OR VOMITING Ondansetron HCl (Zofran Odt) 4 mg PO Q6H PRN PRN Reason: NAUSEA OR VOMITING Oxycodone HCl (Roxicodone) 10 mg PO Q4H PRN PRN Reason: Pain 6-10 Last Admin: 10/28/18 19:28 Dose: 10 mg Oxycodone HCl (Roxicodone) 5 mg PO Q4H PRN PRN Reason: PAIN SCALE 3 TO 5 Last Admin: 10/26/18 14:07 Dose: 5 mg Promethazine HCl (Phenergan) 25 mg PO Q6H PRN PRN Reason: NAUSEA OR VOMITING Promethazine HCl (Phenergan Supp) 25 mg RECTAL Q6H PRN PRN Reason: NAUSEA OR VOMITING Senna/Docusate Sodium (Jaqueline-Colace) 1 tab PO BID [facility] Last Admin: 10/28/18 21:16 Dose: 1 tab Sennosides (Senokot) 17.2 mg PO Q12H PRN PRN Reason: Moderate Constipation Sodium Chloride (Ns Flush) 2 ml IV.FLUSH BID [facility] Last Admin: 10/28/18 21:16 Dose: 2 ml Sodium Chloride (Ns Flush) 2 ml IV.FLUSH PRN PRN PRN Reason: FLUSH AFTER USING IV ACCESS Allergies Allergy/AdvReac Type Severity Reaction Status Date / Time No Known Drug Allergies Allergy none Verified 10/24/18 06:57 Home Medications Medication Instructions Recorded Confirmed Type No Known Home Medications 10/24/18 10/24/18 History Results - Labs CBC & Chem 7: 10/28/18 04:41 10/28/18 04:41 Laboratory Results - last 24 hr 10/28/18 10/28/18 04:41 04:41 WBC 7.6 RBC 3.83 L Hgb 11.6 Hct 34.1 L MCV 89.2 MCH 30.3 MCHC 33.9 RDW 14.1 Plt Count 237 MPV 8.5 Neut % (Auto) 46.5 Lymph % (Auto) 42.2 [place] % (Auto) 8.2 H Eos % (Auto) 2.6 Baso % (Auto) 0.5 Neut # (Auto) 3.6 Lymph # (Auto) 3.2 [place] # (Auto) 0.6 Eos # (Auto) 0.2 Baso # (Auto) 0.0 WBC Differential . Differential Comment Auto diff final Sodium 140 Potassium 3.7 Chloride 105 Carbon Dioxide 28.3 Anion Gap 7 BUN 8 Creatinine 0.58 Estimated GFR Greater than 89 Random Glucose 86 Calcium 8.4 L Microbiology 10/27/18 08:26 Wound - Foot Acid Fast Bacilli Smear - Final No acid fast bacilli seen 10/27/18 08:26 Wound - Foot Gram Stain - Final 10/27/18 08:26 Wound - Foot Wound Culture - Preliminary No growth in 24 hours 10/27/18 08:26 Wound - Foot Fungal Smear - Final No fungal elements seen Assessment and Plan - Assessment (1) Lisfranc dislocation Code(s): S93.326A - Dislocation of tarsometatarsal joint of unspecified foot, initial encounter Status: Acute (2) Open fracture of left foot Code(s): S92.902B - Unspecified fracture of left foot, initial encounter for open fracture Status: Acute - Plan 28 year old s/p multiple D&I with ex fix placement to the LLE 2/2 open lisfranc dislocation To OR tomorrow for left LE ORIF and repeat debridement and irrigation Consent to be obtained and to read: Left foot first metatarsal and Lisfranc open reduction internal fixation; Left foot open fracture debridement and irrigation NPO after midnight Patient understands all risks, alternatives, complications, and benefits (1) Lisfranc dislocation Qualifiers: Encounter type: initial encounter Laterality: left Qualified Code(s): S93.325A - Dislocation of tarsometatarsal joint of left foot, initial encounter (2) Open fracture of left foot Qualifiers: Encounter type: initial encounter Qualified Code(s): S92.902B - Unspecified fracture of left foot, initial encounter for open fracture
[2018-10-29] MEDS: Methocarbamol 500 MG Tablet PO SCH ×3 (06:16→21:21)
[2018-10-29] MEDS ORDERED: Metoprolol Tartrate 25 MG Tablet PO ONE (08:16)
[2018-10-29] MEDS ORDERED: Chlorhexidine Gluconate 2% 1 Pack (2 Cloths) TOPICAL ONE (08:16)
[2018-10-29] MEDS ORDERED: Sodium Chlor 0.9% Inj 500 ML IV.SIG SCH (09:00)
[2018-10-29] MEDS: Lidocaine 5% Patch T-DERMAL SCH (10:18)
[2018-10-29] MEDS: Enoxaparin Inj 30 MG/0.3 ML Syringe SQ SCH ×2 (10:19→21:25)
[2018-10-29] MEDS: [UNRECOGNIZED DRUG - OTHER] IRRIGATION SCH ×2 (10:25)
[2018-10-29] MEDS: SOD CHLORIDE 0.9% IRRIGATION SCH ×2 (10:25)
[2018-10-29] MEDS: NEOMYCIN IRRIGATION SCH ×2 (10:25)
[2018-10-29] MEDS: Senna/Docusate Sodium 8.6/50 MG Tablet PO SCH ×2 (10:25→21:21)
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
--- NOTE | 2018-10-29 13:52 | P.PNPOD ---
Subjective Interval history: Patient seen bedside. Patient is awaiting surgical intervention. She states she has been n.p.o. No concerns at this time Physical Exam Vital signs: Vital Signs 10/28/18 16:00 10/28/18 21:00 10/28/18 21:15 Temperature 97.8 F 97.9 F Pulse Rate 82 76 Respiratory Rate 20 18 18 Blood Pressure 115/73 124/69 Pulse Oximetry 98 94 L 10/29/18 00:14 10/29/18 08:00 10/29/18 12:00 Temperature 97.9 F 97.9 F 97.5 F L Pulse Rate 70 77 88 Respiratory Rate 18 22 22 Blood Pressure 119/72 117/69 132/80 Pulse Oximetry 94 L 94 L 96 Intake & Output 10/28/18 10/29/18 10/29/18 18:59 06:59 18:59 Intake Total 1440 / 1440 Balance 1440 / 1440 Weight 90.3 kg Intake: Oral 1440 / 1440 Other: # Voids 4 2 Date of Last Bowel Movement 10/28/18 10/26/18 # Bowel Movements 0 Narrative: Left lower extremity dressing clean dry and intact. No interval changes since yesterday's physical exam. Medications and Allergies Active Medications: Active Medications Al Hydroxide/Mg Hydroxide (Milk Of Katey Flannery) 30 ml PO Q12H [facility] Last Admin: 10/29/18 10:19 Dose: Not Given Albuterol (Duoneb Neb (Prn)) 1 ampul NEB Q2HR NEB PRN PRN Reason: WHEEZING Bacitracin (Baciguent Oint) 1 applicatio TOPICAL BID [facility] Last Admin: 10/29/18 10:18 Dose: Not Given Bisacodyl (Dulcolax Supp) 10 mg RECTAL DAILY PRN PRN Reason: SEVERE CONSITIPATION Calcium Carbonate (Tums Chew) 500 mg CHEW Q2H PRN PRN Reason: DYSPEPSIA Sodium Chloride 3,000 ml/ (Neomycin/Polymyxin 2 ml) 0 ml IRRIGATION DAILY [facility] Last Admin: 10/29/18 10:25 Dose: Not Given Enalaprilat (Vasotec Inj) 1.25 mg IV.PUSH Q8H PRN PRN Reason: SBP>180, DBP>95 Enoxaparin Sodium (Lovenox Inj) 30 mg SQ Q12HR [facility] Last Admin: 10/29/18 10:19 Dose: Not Given Hydromorphone HCl (Dilaudid Pf Inj) 0.5 mg IV.PUSH Q4H PRN PRN Reason: Break through pain Lactated Ringer's (Lr 1000 Ml Inj) 1,000 mls @ 30 mls/hr IV.SIG .Q24H [facility] Stop: 10/30/18 08:29 Sodium Chloride (Ns Inj) 500 mls @ 30 mls/hr IV.SIG .Q10H [facility] Lactulose (Lactulose Liq) 30 ml PO DAILY [facility] Last Admin: 10/29/18 10:18 Dose: Not Given Levothyroxine Sodium (Synthroid) 25 mcg PO DAILY@0600 [facility] Last Admin: 10/29/18 06:16 Dose: 25 mcg Lidocaine HCl (Lidoderm 5% Patch.12 Hr) 1 patch T-DERMAL DAILY [facility] Last Admin: 10/29/18 10:18 Dose: 1 patch Methocarbamol (Robaxin) 500 mg PO Q8HR [facility] Last Admin: 10/29/18 06:16 Dose: 500 mg Naloxone HCl (Narcan Inj) 0.4 mg IV.PUSH UNSCH PRN PRN Reason: SEE LABEL COMMENTS Ondansetron HCl (Zofran Inj) 4 mg IV.PUSH Q6H PRN PRN Reason: NAUSEA OR VOMITING Ondansetron HCl (Zofran Odt) 4 mg PO Q6H PRN PRN Reason: NAUSEA OR VOMITING Oxycodone HCl (Roxicodone) 10 mg PO Q4H PRN PRN Reason: Pain 6-10 Last Admin: 10/29/18 06:18 Dose: 10 mg Oxycodone HCl (Roxicodone) 5 mg PO Q4H PRN PRN Reason: PAIN SCALE 3 TO 5 Last Admin: 10/29/18 10:27 Dose: 5 mg Promethazine HCl (Phenergan) 25 mg PO Q6H PRN PRN Reason: NAUSEA OR VOMITING Promethazine HCl (Phenergan Supp) 25 mg RECTAL Q6H PRN PRN Reason: NAUSEA OR VOMITING Senna/Docusate Sodium (Jaqueline-Colace) 1 tab PO BID [facility] Last Admin: 10/29/18 10:25 Dose: Not Given Sennosides (Senokot) 17.2 mg PO Q12H PRN PRN Reason: Moderate Constipation Sodium Chloride (Ns Flush) 2 ml IV.FLUSH BID [facility] Last Admin: 10/29/18 10:24 Dose: 2 ml Sodium Chloride (Ns Flush) 2 ml IV.FLUSH PRN PRN PRN Reason: FLUSH AFTER USING IV ACCESS Allergies Allergy/AdvReac Type Severity Reaction Status Date / Time No Known Drug Allergies Allergy none Verified 10/24/18 06:57 Home Medications Medication Instructions Recorded Confirmed Type No Known Home Medications 10/24/18 10/24/18 History Results - Labs CBC & Chem 7: 10/28/18 04:41 10/28/18 04:41 Microbiology 10/27/18 08:26 Wound - Foot Gram Stain - Final 10/27/18 08:26 Wound - Foot Wound Culture - Preliminary No growth in 48 hours 10/27/18 08:26 Wound - Foot Acid Fast Bacilli Smear - Final No acid fast bacilli seen 10/27/18 08:26 Wound - Foot Fungal Smear - Final No fungal elements seen Assessment and Plan - Assessment (1) Lisfranc dislocation Code(s): S93.326A - Dislocation of tarsometatarsal joint of unspecified foot, initial encounter Status: Acute (2) Open fracture of left foot Code(s): S92.902B - Unspecified fracture of left foot, initial encounter for open fracture Status: Acute - Plan 28 year old s/p multiple D&I with ex fix placement to the LLE 2/2 open lisfranc dislocation To OR today for left LE ORIF and repeat debridement and irrigation Consent to be obtained and to read: Left foot first metatarsal and Lisfranc open reduction internal fixation; Left foot open fracture debridement and irrigation Consent signed Remain NPO Patient understands all risks, alternatives, complications, and benefits (1) Lisfranc dislocation Qualifiers: Encounter type: initial encounter Laterality: left Qualified Code(s): S93.325A - Dislocation of tarsometatarsal joint of left foot, initial encounter (2) Open fracture of left foot Qualifiers: Encounter type: initial encounter Qualified Code(s): S92.902B - Unspecified fracture of left foot, initial encounter for open fracture
[2018-10-30 05:12] LABS: Baso # (Auto) 0.1 th/mm3 (0.0-0.2); Baso % (Auto) 0.7 % (0.0-2.0); Eos # (Auto) 0.3 th/mm3 (0.0-0.4); Eos % (Auto) 3.5 % (0.0-4.0); Hematocrit 35.3 % (35.0-46.0); Hemoglobin 12.2 gm/dL (11.6-15.3); Lymph # (Auto) 3.1 th/mm3 (1.0-4.8); Lymph % (Auto) 36.1 % (9.0-44.0); Mean Corpuscular HGB Conc 34.5 % (32.0-36.0); Mean Corpuscular Hemoglobin 30.8 pg (27.0-34.0); Mean Corpuscular Volume 89.2 fL (80.0-100.0); Mean Platelet Volume 8.2 fL (7.0-11.0); Mono # (Auto) 0.8 th/mm3 (0.0-0.9); Mono % (Auto) 9.6 % (0.0-8.0); Neut # (Auto) 4.3 th/mm3 (1.8-7.7); Neut % (Auto) 50.1 % (16.0-70.0); Platelet Count 268 th/mm3 (150-450); Red Blood Count 3.95 mil/mm3 (4.00-5.30); Red Cell Distribution Width 14.1 % (11.6-17.2); White Blood Count 8.6 th/mm3 (4.0-11.0)
[2018-10-30 05:37] LABS: Anion Gap 8 meq/L (5-15); Blood Urea Nitrogen 10 mg/dL (7-18); Calcium 8.6 mg/dL (8.5-10.1); Carbon Dioxide 28.5 meq/L (21.0-32.0); Chloride 104 meq/L (98-107); Glomerular Filtration Rate Greater Than 89 mL/min (>89); Glucose,Random 98 mg/dL (74-106); Potassium 3.7 meq/L (3.5-5.1); Sodium 140 meq/L (136-145)
[2018-10-30] MEDS: Methocarbamol 500 MG Tablet PO SCH ×3 (06:11→21:01)
--- NOTE | 2018-10-30 06:47 | P.PNOP ---
Subjective Interval history: Resting comfortably. Is scheduled for surgery today for her foot by podiatry. She continues to wear sling on the right upper extremity Physical Exam Vital signs: Vital Signs 10/29/18 08:00 10/29/18 12:00 10/29/18 16:00 Temperature 97.9 F 97.5 F L 97.9 F Pulse Rate 77 88 86 Respiratory Rate 22 22 22 Blood Pressure 117/69 132/80 132/89 Pulse Oximetry 94 L 96 98 10/29/18 20:30 10/30/18 00:20 Temperature 98.7 F 98.2 F Pulse Rate 89 82 Respiratory Rate 17 17 Blood Pressure 122/75 126/59 L Pulse Oximetry 96 97 Intake & Output 10/29/18 10/29/18 10/30/18 06:59 18:59 06:59 Intake Total 1440 / 1440 Balance 1440 / 1440 Weight 90.3 kg 90.3 kg Intake: Oral 1440 / 1440 Other: # Voids 2 4 Date of Last Bowel Movement 10/28/18 10/26/18 10/28/18 # Bowel Movements 0 Narrative: Right upper extremity: Pain to palpation over clavicle. Sling in place. Tenderness over the sternoclavicular joint. Intact sensation distally. Full extension flexion of all fingers Results - Labs CBC & Chem 7: 10/30/18 04:36 10/30/18 04:36 Laboratory Results - last 24 hr 10/30/18 10/30/18 04:36 04:36 WBC 8.6 RBC 3.95 L Hgb 12.2 Hct 35.3 MCV 89.2 MCH 30.8 MCHC 34.5 RDW 14.1 Plt Count 268 MPV 8.2 Neut % (Auto) 50.1 Lymph % (Auto) 36.1 [place] % (Auto) 9.6 H Eos % (Auto) 3.5 Baso % (Auto) 0.7 Neut # (Auto) 4.3 Lymph # (Auto) 3.1 [place] # (Auto) 0.8 Eos # (Auto) 0.3 Baso # (Auto) 0.1 WBC Differential . Differential Comment Auto diff final Sodium 140 Potassium 3.7 Chloride 104 Carbon Dioxide 28.5 Anion Gap 8 BUN 10 Creatinine 0.67 Estimated GFR Greater than 89 Random Glucose 98 Calcium 8.6 TSH 19.800 H Microbiology 10/27/18 08:26 Wound - Foot Gram Stain - Final 10/27/18 08:26 Wound - Foot Wound Culture - Preliminary No growth in 48 hours Assessment and Plan - Assessment and Plan Right clavicle fracture and bilateral sternoclavicular joint separations. Nonoperative treatment for bilateral shoulders. She will be nonweightbearing of the right upper extremity and continue to remain in sling and swath. She may be weightbearing as tolerated on the left upper extremity. Continue podiatry care
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
[2018-10-30] MEDS: Lidocaine 5% Patch T-DERMAL SCH (09:47)
[2018-10-30] MEDS: Enoxaparin Inj 30 MG/0.3 ML Syringe SQ SCH ×2 (09:48→20:58)
[2018-10-30] MEDS: Senna/Docusate Sodium 8.6/50 MG Tablet PO SCH ×2 (09:48→20:56)
[2018-10-30] MEDS: SOD CHLORIDE 0.9% IRRIGATION SCH ×2 (09:50)
[2018-10-30] MEDS: NEOMYCIN IRRIGATION SCH ×2 (09:50)
[2018-10-30] MEDS: [UNRECOGNIZED DRUG - OTHER] IRRIGATION SCH ×2 (09:50)
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
[2018-10-31] MEDS ORDERED: Chlorhexidine Gluconate 2% 1 Pack (2 Cloths) TOPICAL ONE (02:52)
[2018-10-31] MEDS ORDERED: Sodium Chlor 0.9% Inj 500 ML IV.SIG SCH (03:00)
[2018-10-31] MEDS: Methocarbamol 500 MG Tablet PO SCH ×2 (05:50→13:33)
[2018-10-31] MEDS: Lidocaine 5% Patch T-DERMAL SCH (09:34)
[2018-10-31] MEDS: Senna/Docusate Sodium 8.6/50 MG Tablet PO SCH (09:37)
[2018-10-31] MEDS: Enoxaparin Inj 30 MG/0.3 ML Syringe SQ SCH (09:37)
[2018-10-31] MEDS: [UNRECOGNIZED DRUG - OTHER] IRRIGATION SCH ×2 (09:38)
[2018-10-31] MEDS: NEOMYCIN IRRIGATION SCH ×2 (09:38)
[2018-10-31] MEDS: SOD CHLORIDE 0.9% IRRIGATION SCH ×2 (09:38)
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
[2018-10-31] MEDS ORDERED: Lidocaine PF 1% Inj 5 ML Syringe OTHER ONE (19:01)
[2018-10-31] MEDS ORDERED: ceFAZolin Inj 2 GM in Sodium Chlor 0.9% Inj 100 ML IV.SIG ONE (19:56)
--- NOTE | 2018-10-31 21:10 | P.BOP ---
- Preoperative Diagnosis (1) Displaced fracture of first metatarsal bone, left foot, initial encounter for open fracture (2) Lisfranc fracture (3) Lisfranc dislocation (4) Open fracture of left foot - Postoperative Diagnosis (1) Lisfranc fracture (2) Lisfranc dislocation (3) Open fracture of left foot (4) Displaced fracture of first metatarsal bone, left foot, initial encounter for open fracture Date of procedure: 10/31/18 Procedure: 1. Open reduction with pinning of 1st metatarsal fracture left foot 2. Irrigation and debridement of open fracture left foot Patient noted to have large area of soft tissue necrosis to dorsal foot at area of fracture and permanent internal fixation deemed not appropriate at this time. Necrotic tissue excisionally debrided with #15 blade and rongeur down to bleeding subcutaneous tissue and tendon to dorsal left foot. Residual wound left is approximately 7cm x 4cm x 0.8cm depth, down to level of tendon and bone. Fixator removed and 1st TMT joint very unstable. Fracture pinned with 0.62 k- wire to 1st metatarsal base, as well as 0.62 kwire from 1st metatarsal to medial cuneiform due to severe instability. Left the two pins in 2nd metatarsal to midfoot area. Irrigation with normal saline, followed by approximation of tissue with 2-0 nylon and applied xeroform to wound bed and small granufoam wound vac to the wound. Setting at 125mmHg medium continuous. Short posterior splint reapplied. 2g ancef IV preop No tourniquet utilized. Nonweightbearing left lower extremity. DISPOSITION: VERY IMPORTANT Will need definitive fusion of lisfranc joint when soft tissue defect has healed. Will likely need a graft to the wound area. This is a VERY unstable foot and complex wound and wound vac area with hardware within the wound bed. She will need wound vac changes under anesthesia.. If patient is going to go upstairs to [place], will follow there and change wound vac under anesthesia with possibly apply some kind of graft application prior to discharge. I understand she lives in [place], but may have serious issues with wound and infection if not able to get patient ready for travel and follow up arranged PRIOR to her discharge. Implants: k-wires Anesthesia: GETA, local (10mL 0.25% marcaine plain) Surgeon: Jennifer David DPM Product Safety Tester: staff Estimated blood loss (mL): 10 Pathology: none sent Condition: stable Disposition: PACU
[2018-10-31] MEDS ORDERED: *morphine SULFATE 4 MG/ML PERIprocedure ONLY ONE ×2 (21:58→22:25)
[2018-11-01] MEDS: Enoxaparin Inj 30 MG/0.3 ML Syringe SQ SCH ×3 (00:06→22:20)
[2018-11-01] MEDS: Methocarbamol 500 MG Tablet PO SCH ×4 (00:10→22:20)
[2018-11-01] MEDS ORDERED: Bisacodyl 10 MG Supp RECTAL ONE (07:22)
[2018-11-01] MEDS: Senna/Docusate Sodium 8.6/50 MG Tablet PO SCH ×3 (08:43→22:20)
[2018-11-01] MEDS: Lidocaine 5% Patch T-DERMAL SCH (08:43)
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
[2018-11-01 11:39] LABS: Hematocrit 34.7 % (35.0-46.0); Hemoglobin 11.8 gm/dL (11.6-15.3)
[2018-11-01] MEDS: [UNRECOGNIZED DRUG - OTHER] IRRIGATION SCH ×2 (11:40)
[2018-11-01] MEDS: SOD CHLORIDE 0.9% IRRIGATION SCH ×2 (11:40)
[2018-11-01] MEDS: NEOMYCIN IRRIGATION SCH ×2 (11:40)
--- NOTE | 2018-11-01 19:20 | P.PNPOD ---
Physical Exam Vital signs: Vital Signs 10/31/18 20:53 10/31/18 21:00 10/31/18 21:15 Temperature 98.3 F Pulse Rate 94 H 85 82 Respiratory Rate 14 14 16 Blood Pressure 134/84 133/77 141/79 H Pulse Oximetry 99 98 99 10/31/18 21:30 10/31/18 21:45 10/31/18 22:00 Temperature Pulse Rate 77 82 79 Respiratory Rate 14 19 23 Blood Pressure 137/76 136/73 135/78 Pulse Oximetry 100 99 100 10/31/18 22:15 10/31/18 22:30 11/01/18 00:01 Temperature 98.2 F 98.1 F Pulse Rate 76 81 77 Respiratory Rate 16 17 18 Blood Pressure 130/74 120/72 114/76 Pulse Oximetry 99 98 94 L 11/01/18 03:24 11/01/18 08:00 11/01/18 09:13 Temperature 98.0 F 97.8 F Pulse Rate 94 H 90 Respiratory Rate 18 20 18 Blood Pressure 112/65 137/83 Pulse Oximetry 96 97 11/01/18 12:01 11/01/18 13:18 11/01/18 16:00 Temperature 97.9 F 98.1 F Pulse Rate 80 72 Respiratory Rate 16 18 16 Blood Pressure 115/66 100/55 L Pulse Oximetry 96 11/01/18 16:56 Temperature Pulse Rate Respiratory Rate 18 Blood Pressure Pulse Oximetry Intake & Output 11/01/18 11/01/18 11/02/18 06:59 18:59 06:59 Intake Total 1150 / 1150 1720 / 1720 Output Total 10 10 Balance 1140 / 1140 1720 / 1720 Weight 87.1 kg Intake: IV 50 / 50 1000 / 1000 Ancef Inj 2 GM In NS Inj 100 ML 50 / 50 @ 100 mls/hr IV.SIG ONCE ONE Rx#:[id number] Oral 720 / 720 Anesthesia Amount 1100 / 1100 Output: Estimated Blood Loss 10 / 10 Other: Mode Setting Left Foot Continuous Continuous # Voids 3 2 Date of Last Bowel Movement 10/31/18 Narrative: wound vac intact left foot, splint intact left lower extremity. Neurovascularly intact left lower extremity Medications and Allergies Active Medications: Active Medications Al Hydroxide/Mg Hydroxide (Milk Of Magnesia Liq) 30 ml PO Q12H LUCIO Last Admin: 11/01/18 08:49 Dose: Not Given Albuterol (Duoneb Neb (Prn)) 1 ampul NEB Q2HR NEB PRN PRN Reason: WHEEZING Bacitracin (Baciguent Oint) 1 applicatio TOPICAL BID [facility] Last Admin: 11/01/18 08:49 Dose: 1 applicatio Bisacodyl (Dulcolax Supp) 10 mg RECTAL DAILY PRN PRN Reason: SEVERE CONSITIPATION Calcium Carbonate (Tums Chew) 500 mg CHEW Q2H PRN PRN Reason: DYSPEPSIA Sodium Chloride 3,000 ml/ (Neomycin/Polymyxin 2 ml) 0 ml IRRIGATION DAILY [facility] Last Admin: 11/01/18 11:40 Dose: Not Given Enalaprilat (Vasotec Inj) 1.25 mg IV.PUSH Q8H PRN PRN Reason: SBP>180, DBP>95 Enoxaparin Sodium (Lovenox Inj) 30 mg SQ Q12HR [facility] Last Admin: 11/01/18 08:43 Dose: 30 mg Hydromorphone HCl (Dilaudid Pf Inj) 0.5 mg IV.PUSH Q4H PRN PRN Reason: Break through pain Sodium Chloride (Ns Inj) 500 mls @ 30 mls/hr IV.SIG .Q10H LUCIO Sodium Chloride (Ns Inj) 500 mls @ 30 mls/hr IV.SIG .Q10H [facility] Last Admin: 10/31/18 06:06 Dose: Not Given Lactulose (Lactulose Liq) 30 ml PO DAILY [facility] Last Admin: 11/01/18 08:49 Dose: Not Given Levothyroxine Sodium (Synthroid) 50 mcg PO DAILY@0600 [facility] Last Admin: 11/01/18 07:52 Dose: 50 mcg Lidocaine HCl (Lidoderm 5% Patch.12 Hr) 1 patch T-DERMAL DAILY [facility] Last Admin: 11/01/18 08:43 Dose: 1 patch Methocarbamol (Robaxin) 500 mg PO Q8HR [facility] Last Admin: 11/01/18 13:17 Dose: 500 mg Miscellaneous Information ([facility]) 0 each OTHER UNSCH PRN PRN Reason: SEE LABEL COMMENTS Stop: 11/01/18 20:54 Naloxone HCl (Narcan Inj) 0.4 mg IV.PUSH UNSCH PRN PRN Reason: SEE LABEL COMMENTS Ondansetron HCl (Zofran Inj) 4 mg IV.PUSH Q6H PRN PRN Reason: NAUSEA OR VOMITING Ondansetron HCl (Zofran Odt) 4 mg PO Q6H PRN PRN Reason: NAUSEA OR VOMITING Oxycodone HCl (Roxicodone) 10 mg PO Q4H PRN PRN Reason: Pain 6-10 Last Admin: 11/01/18 16:26 Dose: 10 mg Oxycodone HCl (Roxicodone) 5 mg PO Q4H PRN PRN Reason: PAIN SCALE 3 TO 5 Last Admin: 10/29/18 21:20 Dose: 5 mg Promethazine HCl (Phenergan) 25 mg PO Q6H PRN PRN Reason: NAUSEA OR VOMITING Promethazine HCl (Phenergan Supp) 25 mg RECTAL Q6H PRN PRN Reason: NAUSEA OR VOMITING Senna/Docusate Sodium (Jaqueline-Colace) 1 tab PO BID [facility] Last Admin: 11/01/18 09:10 Dose: Not Given Sennosides (Senokot) 17.2 mg PO Q12H PRN PRN Reason: Moderate Constipation Sodium Chloride (Ns Flush) 2 ml IV.FLUSH BID [facility] Last Admin: 11/01/18 09:10 Dose: Not Given Sodium Chloride (Ns Flush) 2 ml IV.FLUSH PRN PRN PRN Reason: FLUSH AFTER USING IV ACCESS Allergies Allergy/AdvReac Type Severity Reaction Status Date / Time No Known Drug Allergies Allergy none Verified 10/24/18 06:57 Home Medications Medication Instructions Recorded Confirmed Type No Known Home Medications 10/24/18 10/24/18 History Results - Labs CBC & Chem 7: 11/01/18 10:25 10/30/18 04:36 Laboratory Results - last 24 hr 11/01/18 10:25 Hgb 11.8 Hct 34.7 L Assessment and Plan - Assessment (1) Lisfranc dislocation Code(s): S93.326A - Dislocation of tarsometatarsal joint of unspecified foot, initial encounter Status: Acute (2) Open fracture of left foot Code(s): S92.902B - Unspecified fracture of left foot, initial encounter for open fracture Status: Acute - Plan s/p Debridement of open fracture left lisfranc fracture/open 1st metatarsal fracture 10/[address] [facility] Plan to OR for further wound debridement to dorsal foot Discussed possible graft to the wound and adjustment of pinning vs placement of external fixation to span the joint and allow dressing to be changed more easily to facilitate easier transfer of care to her home in [facility]. Surgery planned Sunday morning. NPO after midnight sunday night (1) Lisfranc dislocation Qualifiers: Encounter type: initial encounter Laterality: left Qualified Code(s): S93.325A - Dislocation of tarsometatarsal joint of left foot, initial encounter (2) Open fracture of left foot Qualifiers: Encounter type: initial encounter Qualified Code(s): S92.902B - Unspecified fracture of left foot, initial encounter for open fracture
[2018-11-02] MEDS: Methocarbamol 500 MG Tablet PO SCH ×3 (06:37→22:17)
[2018-11-02] MEDS: Lidocaine 5% Patch T-DERMAL SCH (08:29)
[2018-11-02] MEDS: SOD CHLORIDE 0.9% IRRIGATION SCH ×2 (08:29)
[2018-11-02] MEDS: Enoxaparin Inj 30 MG/0.3 ML Syringe SQ SCH ×2 (08:29→22:18)
[2018-11-02] MEDS: Senna/Docusate Sodium 8.6/50 MG Tablet PO SCH ×2 (08:29→22:16)
[2018-11-02] MEDS: NEOMYCIN IRRIGATION SCH ×2 (08:29)
[2018-11-02] MEDS: [UNRECOGNIZED DRUG - OTHER] IRRIGATION SCH ×2 (08:29)
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
[2018-11-02] MEDS ORDERED: Chlorhexidine Gluconate 2% 1 Pack (2 Cloths) TOPICAL ONE (19:51)
[2018-11-02] MEDS ORDERED: Metoprolol Tartrate 25 MG Tablet PO ONE (19:51)
[2018-11-03] MEDS: Methocarbamol 500 MG Tablet PO SCH ×4 (06:31→22:33)
[2018-11-03] MEDS ORDERED: Ketamine Inj 50 MG/5 ML Syringe IV.PUSH ONE (08:46)
[2018-11-03] MEDS ORDERED: Succinylcholine Inj 100 MG/5 ML Syringe IV.PUSH ONE (09:00)
[2018-11-03] MEDS ORDERED: Lidocaine PF 1% Inj 5 ML Syringe OTHER ONE (09:00)
[2018-11-03] MEDS ORDERED: Bupivacaine 0.5% Inj 50 ML MDV Vial ONE (09:15)
[2018-11-03] MEDS ORDERED: ceFAZolin 2 GM Premix Inj 2 GM/50 ML PIGGYBACK IV.SIG ONE (10:28)
[2018-11-03] MEDS ORDERED: GENTAMICIN IRRIGATION ONE ×3 (10:31)
[2018-11-03] MEDS ORDERED: SOD CHLORIDE 0.9% IRRIGATION ONE ×3 (10:31)
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
[2018-11-03] MEDS ORDERED: fentaNYL Citrate Inj 100 MCG/2 ML Ampul ONE ×2 (11:51→11:52)
[2018-11-03] MEDS ORDERED: *morphine SULFATE 4 MG/ML PERIprocedure ONLY ONE ×2 (12:02→12:09)
--- NOTE | 2018-11-03 12:02 | P.BOP ---
- Preoperative Diagnosis (1) Wound of left foot (2) Lisfranc fracture (3) Open fracture of left foot - Postoperative Diagnosis (1) Lisfranc fracture (2) Open fracture of left foot (3) Wound of left foot Date of procedure: 11/03/18 Procedure: 1. External fixation left lisfranc fracture/dislocation 2. Irrigation and debridement of wound left foot with graft Patient noted to have large soft tissue defect to medial/dorsal foot. Percutaneous pin fixation placed to maintain reduction of lisfranc joint, taking care to remain outside the wound area. Excisional debridement with #15 blade and rongeur down to bleeding subcutaneous tissue and tendon to dorsal left foot. Neox graft 3cm x 2cm meshed and placed over wound and sutured into place. Adaptic and small wound vac dressing placed over the graft/wound maintained at 125mm medium continuous setting. Residual wound measured approximately 7cm x 4cm x 0.8cm depth, down to level of tendon and bone. Synthes small external fixator placed from medial talar neck to distal 1st metatarsal to lateral cuneiform to assist with stabilizing joint, as well as allowing room for dressing change and graft tissue immobility. Irrigation with normal saline, followed by approximation of tissue around pins with 2-0 nylon and applied xeroform to pins sites Short posterior splint reapplied. 2g ancef IV preop No tourniquet utilized. DISPOSITION: Nonweightbearing left lower extremity. I will remove vac Sunday and assess graft. There is possibility vac will be reapplied, but compression bandage may be possible if graft appears to be adhering well by then. If so, we can coordinate discharge sooner. Patient will be going back home to [facility]. I will be attempting to get in touch with Greg Zuniga MD(orthopedics) in [place], [place] to transfer care to him. Implants: Synthes small external fixation, 0.62 kwires x 2 Anesthesia: GETA, local (20mL 0.5% marcaine plain) Surgeon: Jennifer David DPM [employer] Mechanic Apprentice: staff Estimated blood loss (mL): 10 Pathology: none sent Condition: stable Disposition: PACU
[2018-11-03] MEDS: Enoxaparin Inj 30 MG/0.3 ML Syringe SQ SCH ×3 (12:23→22:31)
[2018-11-03] MEDS: NEOMYCIN IRRIGATION SCH ×2 (12:24)
[2018-11-03] MEDS: SOD CHLORIDE 0.9% IRRIGATION SCH ×2 (12:24)
[2018-11-03] MEDS: [UNRECOGNIZED DRUG - OTHER] IRRIGATION SCH ×2 (12:24)
[2018-11-03] MEDS: Senna/Docusate Sodium 8.6/50 MG Tablet PO SCH ×3 (12:24→22:33)
--- NOTE | 2018-11-03 12:34 | XR ---
EXAM DATE: 11/03/2018 12:07 PM EST AGE/SEX: 28 years / Female INDICATIONS: External fixator application. CLINICAL DATA: This is the patient's subsequent encounter. Patient reports that signs and symptoms h ave been present for 4 - 6 days and indicates a pain score of Nonresponsive. MEDICAL/SURGICAL HISTORY: Non-responsive. Non-responsive. [place] [facility] [place]. . FINDINGS: Patient is in external fixator. Alignment across the fracture is at the base of the metatarsals is re asonably anatomic the exception of the base of the of the first metatarsal. CONCLUSION: Alignment as above Electronically signed by: Yvan Randolph MD Board Certified Radiologist 11/03/2018 12:32 PM EST
[2018-11-03] MEDS: Lidocaine 5% Patch T-DERMAL SCH (13:21)
--- NOTE | 2018-11-03 13:28 | P.PNPOD ---
Physical Exam Vital signs: Vital Signs 11/02/18 15:05 11/02/18 16:39 11/02/18 18:37 Temperature 98.8 F Pulse Rate 84 Respiratory Rate 16 20 18 Blood Pressure 125/66 Pulse Oximetry 96 11/02/18 19:08 11/02/18 20:03 11/02/18 23:23 Temperature 97.7 F 98.0 F Pulse Rate 92 H 88 83 Respiratory Rate 19 18 Blood Pressure 109/57 L 112/68 Pulse Oximetry 96 98 11/03/18 00:20 11/03/18 03:00 11/03/18 03:54 Temperature 98.0 F Pulse Rate 84 73 86 Respiratory Rate 18 Blood Pressure 109/65 Pulse Oximetry 98 11/03/18 07:11 11/03/18 07:15 11/03/18 08:03 Temperature 98.4 F Pulse Rate 76 80 Respiratory Rate 18 16 Blood Pressure 119/64 Pulse Oximetry 95 11/03/18 11:40 11/03/18 11:45 11/03/18 12:00 Temperature 98.4 F Pulse Rate 85 85 83 Respiratory Rate 16 15 15 Blood Pressure 145/78 H 148/86 H 142/86 H Pulse Oximetry 98 99 98 11/03/18 12:15 11/03/18 12:20 11/03/18 12:25 Temperature 98.0 F Pulse Rate 86 85 Respiratory Rate 12 14 14 Blood Pressure 131/82 Pulse Oximetry 97 97 11/03/18 12:58 Temperature 98.4 F Pulse Rate 79 Respiratory Rate 16 Blood Pressure 130/76 Pulse Oximetry 94 L Intake & Output 11/02/18 11/03/18 11/03/18 18:59 06:59 18:59 Intake Total 50 / 50 Output Total Balance -1 / -1 50 / 50 Weight 92.7 kg Intake: IV 50 / 50 Ancef 2 GM Premix Inj 2 gm In 50 / 50 50 ml @ 200 mls/hr IV.SIG ONCE ONE Rx#:[id number] Output: Urine/Stool Mix 1 / Wound Vac Amount 0 / 0 Left Foot 0 / 0 Left Knee 0 / 0 Other: Mode Setting Left Foot Continuous Intermittent Continuous Left Knee Continuous Continuous # Voids 1 Date of Last Bowel Movement 10/28/18 11/02/18 11/02/18 # Bowel Movements 1 Medications and Allergies Active Medications: Active Medications Al Hydroxide/Mg Hydroxide (Milk Of Magnesia Liq) 30 ml PO Q12H [facility] Last Admin: 11/03/18 12:24 Dose: Not Given Albuterol (Duoneb Neb (Prn)) 1 ampul NEB Q2HR NEB PRN PRN Reason: WHEEZING Bacitracin (Baciguent Oint) 1 applicatio TOPICAL BID [facility] Last Admin: 11/03/18 12:23 Dose: Not Given Bisacodyl (Dulcolax Supp) 10 mg RECTAL DAILY PRN PRN Reason: SEVERE CONSITIPATION Calcium Carbonate (Tums Chew) 500 mg CHEW Q2H PRN PRN Reason: DYSPEPSIA Sodium Chloride 3,000 ml/ (Neomycin/Polymyxin 2 ml) 0 ml IRRIGATION DAILY [facility] Last Admin: 11/03/18 12:24 Dose: Not Given Enalaprilat (Vasotec Inj) 1.25 mg IV.PUSH Q8H PRN PRN Reason: SBP>180, DBP>95 Enoxaparin Sodium (Lovenox Inj) 30 mg SQ Q12HR [facility] Last Admin: 11/03/18 12:23 Dose: Not Given Hydromorphone HCl (Dilaudid Pf Inj) 0.5 mg IV.PUSH Q4H PRN PRN Reason: Break through pain Sodium Chloride (Ns Inj) 500 mls @ 30 mls/hr IV.SIG .Q10H [facility] Sodium Chloride (Ns Inj) 500 mls @ 30 mls/hr IV.SIG .Q10H [facility] Last Admin: 10/31/18 06:06 Dose: Not Given Lactated Ringer's (Lr 1000 Ml Inj) 1,000 mls @ 30 mls/hr IV.SIG .Q24H [facility] Stop: 11/03/18 19:59 Last Admin: 11/03/18 08:00 Dose: 30 mls/hr Lactulose (Lactulose Liq) 30 ml PO DAILY [facility] Last Admin: 11/03/18 12:23 Dose: Not Given Levothyroxine Sodium (Synthroid) 50 mcg PO DAILY@0600 [facility] Last Admin: 11/03/18 06:31 Dose: 50 mcg Lidocaine HCl (Lidoderm 5% Patch.12 Hr) 1 patch T-DERMAL DAILY [facility] Last Admin: 11/03/18 13:21 Dose: Not Given Methocarbamol (Robaxin) 500 mg PO Q8HR [facility] Last Admin: 11/03/18 13:20 Dose: 500 mg Miscellaneous Information ([facility] [facility] 1 each OTHER UNSCH PRN PRN Reason: SEE LABEL COMMENTS Stop: 11/04/18 12:41 Naloxone HCl (Narcan Inj) 0.4 mg IV.PUSH UNSCH PRN PRN Reason: SEE LABEL COMMENTS Ondansetron HCl (Zofran Inj) 4 mg IV.PUSH Q6H PRN PRN Reason: NAUSEA OR VOMITING Ondansetron HCl (Zofran Odt) 4 mg PO Q6H PRN PRN Reason: NAUSEA OR VOMITING Oxycodone HCl (Roxicodone) 10 mg PO Q4H PRN PRN Reason: Pain 6-10 Last Admin: 11/03/18 13:20 Dose: 10 mg Oxycodone HCl (Roxicodone) 5 mg PO Q4H PRN PRN Reason: PAIN SCALE 3 TO 5 Last Admin: 10/29/18 21:20 Dose: 5 mg Promethazine HCl (Phenergan) 25 mg PO Q6H PRN PRN Reason: NAUSEA OR VOMITING Promethazine HCl (Phenergan Supp) 25 mg RECTAL Q6H PRN PRN Reason: NAUSEA OR VOMITING Senna/Docusate Sodium (Jaqueline-Colace) 1 tab PO BID [facility] Last Admin: 11/03/18 12:24 Dose: Not Given Sennosides (Senokot) 17.2 mg PO Q12H PRN PRN Reason: Moderate Constipation Sodium Chloride (Ns Flush) 2 ml IV.FLUSH BID [facility] Last Admin: 11/03/18 12:24 Dose: Not Given Sodium Chloride (Ns Flush) 2 ml IV.FLUSH PRN PRN PRN Reason: FLUSH AFTER USING IV ACCESS Allergies Allergy/AdvReac Type Severity Reaction Status Date / Time No Known Drug Allergies Allergy none Verified 10/24/18 06:57 Home Medications Medication Instructions Recorded Confirmed Type No Known Home Medications 10/24/18 10/24/18 History Results - Labs CBC & Chem 7: 11/01/18 10:25 10/30/18 04:36 - Imaging Impressions Foot X-Ray 11/03/18 00:00 CONCLUSION: Alignment as above Assessment and Plan - Assessment (1) Lisfranc dislocation Code(s): S93.326A - Dislocation of tarsometatarsal joint of unspecified foot, initial encounter Status: Acute (2) Open fracture of left foot Code(s): S92.902B - Unspecified fracture of left foot, initial encounter for open fracture Status: Acute - Plan Adjusted bar on exfix with radiology present to take new radiographs. 1st met-cuneiform joint is inherently unstable with comminution and k-wire placement was not possible intraoperatively, due to large dorsal wound area and need to avoid having a pin through the wound area. Pins were in wound area for first reduction Plan is for patient to undergo primary fusion once wound is healed and wound healing is going to have to take priority in this circumstance. (1) Lisfranc dislocation Qualifiers: Encounter type: initial encounter Laterality: left Qualified Code(s): S93.325A - Dislocation of tarsometatarsal joint of left foot, initial encounter (2) Open fracture of left foot Qualifiers: Encounter type: initial encounter Qualified Code(s): S92.902B - Unspecified fracture of left foot, initial encounter for open fracture
--- NOTE | 2018-11-03 13:58 | XR ---
EXAM DATE: 11/03/2018 1:25 PM EST AGE/SEX: 28 years / Female INDICATIONS: Readjustment of ex-fix. CLINICAL DATA: This is the patient's initial encounter. Patient reports that signs and symptoms have been present for 1 day and indicates a pain score of 5/10. MEDICAL/SURGICAL HISTORY: None. None. COMPARISON: [facility] – [place], [place] COMPLETE LEFT 3V, 11/03/2018. . FINDINGS: There has been interval adjustment of external fixators. There is improved approximation of the fract ure fragments with improved angulation of the comminuted first proximal metatarsal fracture. There is persistent 3 mm separation of the major fracture fragment on the AP view. Remainder of exam is uncha nged. CONCLUSION: 1. Interval external fixation adjustment with improved angulation and approximation of the comminute d first proximal metatarsal fracture, as above. Electronically signed by: Polo Burleson MD Board Certified Radiologist 11/03/2018 1:56 PM EST
[2018-11-04] MEDS: Methocarbamol 500 MG Tablet PO SCH ×3 (05:04→21:31)
[2018-11-04 06:34] LABS: Baso % (Auto) 0.3 % (0.0-2.0); Eos # (Auto) 0.1 th/mm3 (0.0-0.4); Eos % (Auto) 1.3 % (0.0-4.0); Hematocrit 33.8 % (35.0-46.0); Hemoglobin 11.7 gm/dL (11.6-15.3); Lymph # (Auto) 3.1 th/mm3 (1.0-4.8); Lymph % (Auto) 35.7 % (9.0-44.0); Mean Corpuscular HGB Conc 34.7 % (32.0-36.0); Mean Corpuscular Hemoglobin 31.1 pg (27.0-34.0); Mean Corpuscular Volume 89.5 fL (80.0-100.0); Mean Platelet Volume 8.1 fL (7.0-11.0); Mono # (Auto) 0.7 th/mm3 (0.0-0.9); Mono % (Auto) 7.8 % (0.0-8.0); Neut # (Auto) 4.7 th/mm3 (1.8-7.7); Neut % (Auto) 54.9 % (16.0-70.0); Platelet Count 319 th/mm3 (150-450); Red Blood Count 3.78 mil/mm3 (4.00-5.30); Red Cell Distribution Width 14.2 % (11.6-17.2); White Blood Count 8.6 th/mm3 (4.0-11.0)
[2018-11-04 06:55] LABS: Anion Gap 7 meq/L (5-15); Blood Urea Nitrogen 11 mg/dL (7-18); Calcium 8.4 mg/dL (8.5-10.1); Carbon Dioxide 26.7 meq/L (21.0-32.0); Chloride 104 meq/L (98-107); Glomerular Filtration Rate Greater Than 89 mL/min (>89); Glucose,Random 91 mg/dL (74-106); Potassium 3.7 meq/L (3.5-5.1); Sodium 138 meq/L (136-145)
[2018-11-04] MEDS: HYDROmorphone PF Inj 1 MG/ML Ampul IV.PUSH PRN (07:25)
[2018-11-04] MEDS: Enoxaparin Inj 30 MG/0.3 ML Syringe SQ SCH ×2 (10:20→21:31)
[2018-11-04] MEDS: Senna/Docusate Sodium 8.6/50 MG Tablet PO SCH ×2 (10:21→21:30)
--- NOTE | 2018-11-04 11:32 | XR ---
EXAM DATE: 11/03/2018 12:24 PM EST AGE/SEX: 28 years / Female INDICATIONS: External fixator application. CLINICAL DATA: This is the patient's initial encounter. Patient reports that signs and symptoms have been present for 1 day and indicates a pain score of Nonresponsive. MEDICAL/SURGICAL HISTORY: Non-responsive. Non-responsive. COMPARISON: [facility], FOOT LIMITED LEFT 2V, 10/31/2018. . FINDINGS: 3 intraoperative images demonstrate interval placement of external screw fixators in the proximal fir st metatarsal and cuneiform. K wires are noted extending through the medial midfoot. Prior K wires in the proximal first metatarsal have been removed. More prominent displacement of the proximal comminu bakari left metatarsal fracture. CONCLUSION: 1. Intraoperative external fixation images, as above. Electronically signed by: Polo Burleson MD Board Certified Radiologist 11/03/2018 12:33 PM [id number] T
[2018-11-04] MEDS ORDERED: Metoprolol Tartrate 25 MG Tablet PO ONE (14:42)
[2018-11-04] MEDS ORDERED: Chlorhexidine Gluconate 2% 1 Pack (2 Cloths) TOPICAL ONE (14:42)
[2018-11-04] MEDS ORDERED: Sodium Chlor 0.9% Inj 500 ML IV.SIG ONE (15:00)
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
[2018-11-04] MEDS ORDERED: ceFAZolin 1 GM Premix Inj 2 GM/100 ML PIGGYBACK IV.SIG ONE (17:01)
[2018-11-04] MEDS ORDERED: Bupivacaine PF 0.25% Inj 30 ML Vial ONE (17:01)
[2018-11-04] MEDS ORDERED: HYDROmorphone PF Inj 0.5 MG/0.5 ML Syringe ONE ×2 (17:05→17:16)
[2018-11-04] MEDS: NEOMYCIN IRRIGATION SCH ×2 (17:15)
[2018-11-04] MEDS: SOD CHLORIDE 0.9% IRRIGATION SCH ×2 (17:15)
[2018-11-04] MEDS: [UNRECOGNIZED DRUG - OTHER] IRRIGATION SCH ×2 (17:15)
[2018-11-04] MEDS: Lidocaine 5% Patch T-DERMAL SCH (17:15)
--- NOTE | 2018-11-04 17:41 | P.BOP ---
- Preoperative Diagnosis (1) Lisfranc fracture (2) Open fracture of left foot - Postoperative Diagnosis (1) Lisfranc fracture (2) Open fracture of left foot Date of procedure: 11/04/18 Procedure: 1. Adjustment of external fixation left foot 2. Pinning of fracture left 1st metatarsal Left foot prepped and draped. C-arm utilized to place 0.62 k-wire from distal to proximal 1st metatarsal, through medial cuneiform, to stabilize 1st TMT joint. External fixation adjusted. Dressing with adaptic over graft, xeroform to pin sites, 4x4, abd pads, cast padding, and well-padded posterior splint applied. No tourniquet utilized. DISPOSITION: Still attempting contact for patient follow up in [facility]. Strict nonweightbearing left lower extremity Wound vac removed and will not be re-placed. Will change bandage on Sunday if still in-house or if she goes to rehab, will gladly go up to rehab and observe wound and make recommendations. Implants: 0.62 kwire implanted today in addition to previous fixation. Anesthesia: GETA, local (20mL 0.25% marcaine plain) Surgeon: Jennifer David DPM Junior Sales Assistant: staff Estimated blood loss (mL): 20 Pathology: none sent Condition: stable Disposition: PACU
[2018-11-05] MEDS: Methocarbamol 500 MG Tablet PO SCH ×3 (06:18→21:00)
--- NOTE | 2018-11-05 09:11 | XR ---
EXAM DATE: 11/04/2018 5:12 PM EST AGE/SEX: 28 years / Female INDICATIONS: 1ST TOE Pinning. CLINICAL DATA: This is the patient's initial encounter. Patient reports that signs and symptoms have been present for 1 day and indicates a pain score of Nonresponsive. MEDICAL/SURGICAL HISTORY: Non-responsive. Non-responsive. COMPARISON: [facility] [place]OT COMPLETE LEFT 3V, 11/03/2018. . FINDINGS: Patient status post placement of a pin through the first metatarsal. There is good alignment of the b chris structures. CONCLUSION: Good alignment on this postoperative study. Electronically signed by: Rickey Canales MD Board Certified Radiologist 11/04/2018 5:17 PM EST
[2018-11-05] MEDS: Senna/Docusate Sodium 8.6/50 MG Tablet PO SCH ×2 (10:01→20:59)
[2018-11-05] MEDS: Enoxaparin Inj 30 MG/0.3 ML Syringe SQ SCH ×2 (10:02→20:58)
[2018-11-05] MEDS: Lidocaine 5% Patch T-DERMAL SCH (10:02)
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
[2018-11-05] MEDS: [UNRECOGNIZED DRUG - OTHER] IRRIGATION SCH ×2 (13:30)
[2018-11-05] MEDS: NEOMYCIN IRRIGATION SCH ×2 (13:30)
[2018-11-05] MEDS: SOD CHLORIDE 0.9% IRRIGATION SCH ×2 (13:30)
--- NOTE | 2018-11-05 16:17 | P.DCO ---
- Diagnosis (1) Lisfranc fracture Status: Acute (2) Open fracture of left foot Status: Acute (3) Displaced fracture of first metatarsal bone, left foot, initial encounter for open fracture Status: Acute (4) Wound of left foot Status: Acute - Home Health Nursing Order: Wound care and dressing changes (Every 3 days dressing change to left foot per skilled home health wound care nursing: Remove splint and KEEP LEG PADDING(it is offloading the heel against the splint). Remove dressing carefully. There is a skin graft under the external fixator. Carefully remove adaptic layer over the graft. Please apply xeroform strips to all pin sites to left foot and 4x4. Then apply adaptic over the graft, 4x4, abd pad. Use cast padding/soft roll to keep these dressings in place from the toes to below knee followed by haven bandage over the soft roll. Please place the left foot back into the splint with heel offloaded with the padding in place to avoid heel pressure ulceration. Apply 4'' haven over splint to hold splint in place.) - Case Management Consult Case Management Consult-Home Health: Yes - Certification I have seen patient Cristhian Armando on 11/05/18. My clinical findings support the need for the requested home health care services because: High risk of falls I certify that my clinical findings support that this patient is homebound because: Post-op weakness, Unsteady gait/balance, Unsafe to leave home unassisted, Non- ambulatory: confined to bed or chair (2) Open fracture of left foot Qualifiers: Encounter type: initial encounter Qualified Code(s): S92.902B - Unspecified fracture of left foot, initial encounter for open fracture
--- NOTE | 2018-11-05 16:21 | P.PNPOD ---
Physical Exam Vital signs: Vital Signs 11/04/18 16:54 11/04/18 17:00 11/04/18 17:15 Temperature 97.7 F Pulse Rate 79 70 72 Respiratory Rate 15 14 16 Blood Pressure 143/91 H 151/83 H 128/73 Pulse Oximetry 100 100 98 11/04/18 17:30 11/04/18 21:45 11/05/18 00:00 Temperature 98.4 F 98.4 F Pulse Rate 73 81 76 Respiratory Rate 16 18 18 Blood Pressure 118/71 110/56 L 101/56 L Pulse Oximetry 99 93 L 95 11/05/18 04:00 11/05/18 08:00 11/05/18 12:00 Temperature 98.1 F 98.3 F 98.3 F Pulse Rate 75 63 80 Respiratory Rate 18 19 20 Blood Pressure 121/67 126/59 L 124/76 Pulse Oximetry 96 95 98 Intake & Output 11/04/18 11/05/18 11/05/18 18:59 06:59 18:59 Intake Total 900 / 900 160 / 160 Output Total 20 Balance 880 / 880 160 / 160 Weight 94.6 kg Intake: IV 100 / 100 Ancef 1 GM Premix Inj 2 gm In 100 / 100 100 ml @ 0 mls/hr IV.SIG .STK- MED ONE Rx#:[id number] Oral 160 / 160 Anesthesia Amount 800 / 800 Output: Estimated Blood Loss 20 20 Other: Mode Setting Left Foot Continuous # Voids 1 Date of Last Bowel Movement 11/03/18 11/03/18 11/03/18 # Bowel Movements 0 Narrative: Dressing clean, dry, intact. Neurovascularly intact left lower extremity Medications and Allergies Active Medications: Active Medications Al Hydroxide/Mg Hydroxide (Milk Of Katey Liq) 30 ml PO Q12H [facility] Last Admin: 11/05/18 10:01 Dose: 30 ml Albuterol (Duoneb Neb (Prn)) 1 ampul NEB Q2HR NEB PRN PRN Reason: WHEEZING Bacitracin (Baciguent Oint) 1 applicatio TOPICAL BID [facility] Last Admin: 11/05/18 10:00 Dose: 1 applicatio Bisacodyl (Dulcolax Supp) 10 mg RECTAL DAILY PRN PRN Reason: SEVERE CONSITIPATION Calcium Carbonate (Tums Chew) 500 mg CHEW Q2H PRN PRN Reason: DYSPEPSIA Sodium Chloride 3,000 ml/ (Neomycin/Polymyxin 2 ml) 0 ml IRRIGATION DAILY [facility] Last Admin: 11/05/18 13:30 Dose: Not Given Enalaprilat (Vasotec Inj) 1.25 mg IV.PUSH Q8H PRN PRN Reason: SBP>180, DBP>95 Enoxaparin Sodium (Lovenox Inj) 30 mg SQ Q12HR [facility] Last Admin: 11/05/18 10:02 Dose: 30 mg Hydromorphone HCl (Dilaudid Pf Inj) 0.5 mg IV.PUSH Q4H PRN PRN Reason: Break through pain Last Admin: 11/04/18 07:25 Dose: 0.5 mg Sodium Chloride (Ns Inj) 500 mls @ 30 mls/hr IV.SIG .Q10H LUCIO Sodium Chloride (Ns Inj) 500 mls @ 30 mls/hr IV.SIG .Q10H [facility] Last Admin: 10/31/18 06:06 Dose: Not Given Lactulose (Lactulose Liq) 30 ml PO DAILY [facility] Last Admin: 11/05/18 10:01 Dose: 30 ml Levothyroxine Sodium (Synthroid) 50 mcg PO DAILY@0600 [facility] Last Admin: 11/05/18 06:18 Dose: 50 mcg Lidocaine HCl (Lidoderm 5% Patch.12 Hr) 1 patch T-DERMAL DAILY [facility] Last Admin: 11/05/18 10:02 Dose: 1 patch Methocarbamol (Robaxin) 500 mg PO Q8HR [facility] Last Admin: 11/05/18 13:30 Dose: 500 mg Miscellaneous Information ([facility] Nursing Information) 0 each OTHER UNSCH PRN PRN Reason: SEE LABEL COMMENTS Stop: 11/05/18 16:59 Naloxone HCl (Narcan Inj) 0.4 mg IV.PUSH UNSCH PRN PRN Reason: SEE LABEL COMMENTS Ondansetron HCl (Zofran Inj) 4 mg IV.PUSH Q6H PRN PRN Reason: NAUSEA OR VOMITING Ondansetron HCl (Zofran Odt) 4 mg PO Q6H PRN PRN Reason: NAUSEA OR VOMITING Oxycodone HCl (Roxicodone) 10 mg PO Q4H PRN PRN Reason: Pain 6-10 Last Admin: 11/05/18 10:01 Dose: 10 mg Oxycodone HCl (Roxicodone) 5 mg PO Q4H PRN PRN Reason: PAIN SCALE 3 TO 5 Last Admin: 11/04/18 10:21 Dose: 5 mg Promethazine HCl (Phenergan) 25 mg PO Q6H PRN PRN Reason: NAUSEA OR VOMITING Promethazine HCl (Phenergan Supp) 25 mg RECTAL Q6H PRN PRN Reason: NAUSEA OR VOMITING Senna/Docusate Sodium (Jaqueline-Colace) 1 tab PO BID [facility] Last Admin: 11/05/18 10:01 Dose: 1 tab Sennosides (Senokot) 17.2 mg PO Q12H PRN PRN Reason: Moderate Constipation Sodium Chloride (Ns Flush) 2 ml IV.FLUSH BID [facility] Last Admin: 11/05/18 10:02 Dose: 2 ml Sodium Chloride (Ns Flush) 2 ml IV.FLUSH PRN PRN PRN Reason: FLUSH AFTER USING IV ACCESS Allergies Allergy/AdvReac Type Severity Reaction Status Date / Time No Known Drug Allergies Allergy none Verified 10/24/18 06:57 Home Medications Medication Instructions Recorded Confirmed Type No Known Home Medications 10/24/18 10/24/18 History Results - Labs CBC & Chem 7: 11/04/18 05:15 11/04/18 05:15 - Imaging Impressions Foot X-Ray 11/04/18 00:00 CONCLUSION: Good alignment on this postoperative study. Assessment and Plan - Assessment (1) Lisfranc fracture Status: Acute (2) Open fracture of left foot Code(s): S92.902B - Unspecified fracture of left foot, initial encounter for open fracture Status: Acute (3) Displaced fracture of first metatarsal bone, left foot, initial encounter for open fracture Code(s): S92.312B - Displaced fracture of first metatarsal bone, left foot, initial encounter for open fracture Status: Acute (4) Wound of left foot Code(s): S91.302A - Unspecified open wound, left foot, initial encounter Status: Acute (5) Lisfranc dislocation Code(s): S93.326A - Dislocation of tarsometatarsal joint of unspecified foot, initial encounter Status: Acute - Plan Attempted to contact office of Dr Greg Zuniga, orthopedic trauma in [facility] No one has returned my calls. Patient was seen and we discussed she is to continue to try to make contact with doctor's office for appointment and needs to be seen within 2-3 weeks. Discussed utmost importance is wound care and infection prevention. Recommend patient discharged on 2 weeks oral broad spectrum antibiotics as precaution. Nonweightbearing left lower extremity. Keep clean, dry, intact. Discussed with patient wound needs to heal, then she will move on to definitive lisfranc fusion with a surgeon near her home. Face to face filled out with the following very explicit instructions for home health nursing regarding dressing changes to left lower extremity: Every 3 days dressing change to left foot per skilled home health wound care nursing: Remove splint and KEEP LEG PADDING(it is offloading the heel against the splint). Remove dressing carefully. There is a skin graft under the external fixator. Carefully remove adaptic layer over the graft. Please apply xeroform strips to all pin sites to left foot and 4x4. Then apply adaptic over the graft, 4x4, abd pad. Use cast padding/soft roll to keep these dressings in place from the toes to below knee followed by haven bandage over the soft roll. Please place the left foot back into the splint with heel offloaded with the padding in place to avoid heel pressure ulceration. Apply 4'' haven over splint to hold splint in place. (2) Open fracture of left foot Qualifiers: Encounter type: initial encounter Qualified Code(s): S92.902B - Unspecified fracture of left foot, initial encounter for open fracture (5) Lisfranc dislocation Qualifiers: Encounter type: initial encounter Laterality: left Qualified Code(s): S93.325A - Dislocation of tarsometatarsal joint of left foot, initial encounter
[2018-11-05] MEDS: HYDROmorphone PF Inj 1 MG/ML Ampul IV.PUSH PRN (18:31)
[2018-11-06] MEDS: Methocarbamol 500 MG Tablet PO SCH ×3 (06:42→21:21)
--- NOTE | 2018-11-06 07:38 | P.PNOP ---
Subjective Interval history: Patient is progressing well. She states that the clavicle has decreased pain. She continues to wear the sling and tries to be nonweightbearing on the right upper extremity Physical Exam Vital signs: Vital Signs 11/05/18 08:00 11/05/18 12:00 11/05/18 15:06 Temperature 98.3 F 98.3 F 98.2 F Pulse Rate 63 80 89 Respiratory Rate 19 20 16 Blood Pressure 126/59 L 124/76 129/70 Pulse Oximetry 95 98 98 11/05/18 19:45 11/05/18 23:55 11/06/18 04:05 Temperature 98.4 F 97.6 F 98.2 F Pulse Rate 90 73 77 Respiratory Rate 18 17 17 Blood Pressure 111/60 112/60 121/74 Pulse Oximetry 96 97 95 Intake & Output 11/05/18 11/06/18 11/06/18 18:59 06:59 18:59 Intake Total 360 / 360 Balance 360 / 360 Weight 94.5 kg Intake: Oral 360 / 360 Other: # Voids 1 0 Date of Last Bowel Movement 11/03/18 # Bowel Movements 0 Narrative: Right upper extremity: Mild tenderness to palpation over the clavicle. Mild tenderness to sternoclavicular joint. Minimal tenderness to left sternoclavicular joint. Skin is intact. Sling is in place. She has intact sensation of her radial ulnar median nerve distributions with good capillary refills. She has full extension and flexion of all fingers. Results - Labs CBC & Chem 7: 11/04/18 05:15 11/04/18 05:15 - Imaging Impressions Foot X-Ray 11/04/18 00:00 CONCLUSION: Good alignment on this postoperative study. Assessment and Plan - Assessment and Plan Right clavicle fracture and bilateral sternoclavicular joint separations. X-ray today for right clavicle 2 views to assess continued alignment of fracture Nonoperative treatment for bilateral shoulders. She will be nonweightbearing of the right upper extremity and continue to remain in sling and swath. She may be weightbearing as tolerated on the left upper extremity. Continue podiatry care
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
[2018-11-06] MEDS: Lidocaine 5% Patch T-DERMAL SCH (10:18)
[2018-11-06] MEDS: Enoxaparin Inj 30 MG/0.3 ML Syringe SQ SCH ×2 (10:20→21:21)
[2018-11-06] MEDS: Senna/Docusate Sodium 8.6/50 MG Tablet PO SCH ×2 (10:20→21:21)
[2018-11-06] MEDS: [UNRECOGNIZED DRUG - OTHER] IRRIGATION SCH ×2 (10:21)
[2018-11-06] MEDS: NEOMYCIN IRRIGATION SCH ×2 (10:21)
[2018-11-06] MEDS: SOD CHLORIDE 0.9% IRRIGATION SCH ×2 (10:21)
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
[2018-11-07] MEDS: Methocarbamol 500 MG Tablet PO SCH (06:00)
[2018-11-07] MEDS: Enoxaparin Inj 30 MG/0.3 ML Syringe SQ SCH (08:01)
[2018-11-07] MEDS: Lidocaine 5% Patch T-DERMAL SCH (08:01)
[2018-11-07] MEDS: Senna/Docusate Sodium 8.6/50 MG Tablet PO SCH (08:01)
--- NOTE | 2018-11-07 08:22 | P.PNOP ---
Subjective Interval history: States pain is controlled over her shoulder. Patient is using the restroom. Physical Exam Vital signs: Vital Signs 11/06/18 11:57 11/06/18 12:00 11/06/18 15:49 Temperature 98.4 F 98.6 F Pulse Rate 93 H 92 H 80 Respiratory Rate 20 16 Blood Pressure 144/62 H 118/59 L Pulse Oximetry 97 97 11/06/18 15:56 11/06/18 19:54 11/07/18 00:27 Temperature 99.1 F 98.4 F Pulse Rate 81 88 84 Respiratory Rate 19 18 Blood Pressure 125/65 110/55 L Pulse Oximetry 96 96 Intake & Output 11/06/18 11/07/18 11/07/18 18:59 06:59 18:59 Other: # Voids 2 4 Date of Last Bowel Movement 11/05/18 11/05/18 Narrative: Right upper extremity: Sling in place. Skin is intact over clavicle. Pain is continuing to improve. No pain with elbow wrist or finger motion. Full extension flexion of all fingers Results - Labs CBC & Chem 7: 11/04/18 05:15 11/04/18 05:15 - Imaging Impressions Clavicle X-Ray 11/06/18 00:00 CONCLUSION: Right clavicular fracture as above. Assessment and Plan - Assessment and Plan Right clavicle fracture and bilateral sternoclavicular joint separations. X-ray shows oblique fracture of the clavicle with mild override. Nonoperative treatment for bilateral shoulders. She will be nonweightbearing of the right upper extremity and continue to remain in sling and swath. She may be weightbearing as tolerated on the left upper extremity. Continue podiatry care
[2018-11-07 08:30] VITALS: BP 124/72; PULSE 80; RESP 16; TEMP 98; O2SAT 98
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
[2018-11-07] MEDS: SOD CHLORIDE 0.9% IRRIGATION SCH ×2 (12:25)
[2018-11-07] MEDS: NEOMYCIN IRRIGATION SCH ×2 (12:25)
[2018-11-07] MEDS: [UNRECOGNIZED DRUG - OTHER] IRRIGATION SCH ×2 (12:25)
--- NOTE | 2018-11-09 15:27 | MP ---
cc: Jennifer David DPGhulam DATE OF OPERATION: 11/03/2018 The patient presented initially as an open fracture dislocation to the left foot. She underwent several surgeries with pinning and was found to have a wound to the dorsomedial aspect of the left foot. At her last surgery, her pins had to be placed within the wound, and it was deemed necessary that she go to have another surgery in order to place fixation outside the wound if possible and maintain fracture stability, which is the purpose of today's surgery. The patient consented to external fixation, left Lisfranc fracture dislocation, with adjustment as well as irrigation and debridement of wound, left foot with graft. The patient was seen in preoperative holding by myself, nursing staff, and anesthesia where the correct patient, side, and site were all confirmed to be correct and left foot. She was taken to the surgical suite in supine position. The left foot was prepped and draped in normal sterile fashion. Attention was directed to the left foot, where she was noted to have a large soft tissue defect to the medial and dorsal foot. The percutaneous fixation was placed in order to maintain reduction of the Lisfranc joint, taking care to remain outside the wound. The previous stents that were in the wound were removed. Incision and debridement was performed with a #15 blade and rongeured down to healthy bleeding subcutaneous tissue and tendon to the dorsal left foot. A Neox graft, 2 x 3 cm, was meshed and placed over the wound, sutured into place, followed by dressing consisting of Adaptic. A small wound VAC dressing was placed over the graft and maintained at 125 mmHg at medium continuous setting. The residual wound measured approximately 7 x 4 x 0.8 cm in depth, down to the level of tendon and bone. A Synthes small external fixator was placed from the medial talar neck to the distal first metatarsal to the lateral cuneiform to assist with maintaining stability to the Lisfranc joint as well as allowing room for dressing changes and graft tissue and mobility. Irrigation was performed with normal saline followed by approximation of the tissue around the tendon with 2-0 nylon and Xeroform to the pin site, followed by 4 x 4s, ABD, cast padding, and a posterior splint was reapplied to the left lower extremity. The patient tolerated the procedure and anesthesia well without complications and was taken back to PACU with vital signs stable and vascular status intact to left lower extremity. She will be nonweightbearing, and we will continue to assess the graft to determine if she will need continued wound VAC versus dressing changes, and I will try to contact doctor in [place] in order to transfer care. SHORT OPERATIVE NOTE: SURGEON: Jennifer David MD PERSONNEL DIRECTOR: Staff. PREOPERATIVE DIAGNOSES: 1. Wound, left foot. 2. Lisfranc fracture, open. 3. Open fracture of left foot. POSTOPERATIVE DIAGNOSES: 1. Wound, left foot. 2. Lisfranc fracture, open. 3. Open fracture of left foot. PROCEDURE: 1. External fixation of left Lisfranc fracture dislocation. 2. Irrigation and debridement of the wound, left foot with graft. ESTIMATED BLOOD LOSS: 10 mL ANESTHESIA: General endotracheal anesthesia plus local consisting of 20 mL of 0.5% Marcaine plain. IMPLANTS: Synthes small external fixation as well as 0.62 K-wires. COMPLICATIONS: None. CONDITION: Stable to PACU. DISPOSITION: Nonweightbearing to left lower extremity. We will continue to monitor the wound after the wound VAC has been on for a few days to determine if she will need continued wound VAC therapy versus dressing changes. Arranged with home health for her anticipated discharge back to [place]. ROMEO Joshua/tashia , 03:09 PM , 03:17 PM
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
== END 2018-11-07 13:08 | disposition home health service (06) | DRG 958 ==
LOC: NEPC 01:29 → NEDA 03:36 → EDBD 03:36 → N03 06:19 → N06 10-26 16:00
PROVIDERS: ADMIT Surgery; ATTEND Surgery
DX: S42.021A Displaced fracture of shaft of right clavicle, initial encounter for closed fracture; S32.019A Unspecified fracture of first lumbar vertebra, initial encounter for closed fracture; E03.9 Hypothyroidism, unspecified; Y92.410 Unspecified street and highway as the place of occurrence of the external cause; S22.20XA Unspecified fracture of sternum, initial encounter for closed fracture; R40.2412 Glasgow coma scale score 13-15, at arrival to emergency department; F17.210 Nicotine dependence, cigarettes, uncomplicated; S93.325A Dislocation of tarsometatarsal joint of left foot, initial encounter; Z68.41 Body mass index [BMI] 40.0-44.9, adult; S06.6X9A Traumatic subarachnoid hemorrhage with loss of consciousness of unspecified duration, initial encounter; S32.029A Unspecified fracture of second lumbar vertebra, initial encounter for closed fracture; S92.312A Displaced fracture of first metatarsal bone, left foot, initial encounter for closed fracture; S27.322A Contusion of lung, bilateral, initial encounter; I49.3 Ventricular premature depolarization; M79.601 Pain in right arm; E66.9 Obesity, unspecified; S22.43XA Multiple fractures of ribs, bilateral, initial encounter for closed fracture; R26.81 Unsteadiness on feet; Y90.5 Blood alcohol level of 100-119 mg/100 ml; V89.2XXA Person injured in unspecified motor-vehicle accident, traffic, initial encounter; S30.1XXA Contusion of abdominal wall, initial encounter
CPT/HCPCS: 70450; 71010; 71045; 71260; 72125; 72170; 73000; 73590; 73620; 73630; 73700; 74177; 76000; 80048; 80307; 82435; 82565; 82947; 84132; 84295; 84443; 84520; 85014; 85018; 85025; 85610; 85730; 86850; 86900; 86901; 87015; 87070; 87102; 87116; 87205; 87206; 87641; 90471; 90715; 90774; 90775; 90784; 93306; 94150; 96374; 96375; 97110; 97116; 97163; 97167; 97530; 97535; 99291; C1713; C1776; C8952; C9113; G0390; J0330; J0690; J1100; J1170; J1580; J1650; J2001; J2250; J2270; J2405; J2704; J2710; J3010; J3411; J7030; J7040; J7050; J7120; Q4148; Q9967